=== PATIENT | female | born 1980 | race Caucasian/White ===

== ENCOUNTER 2019-12-19 08:26 | Outpatient (CLI) | payer BC, SELFPAY ==
--- NOTE | ~2019-12-19 | MM_ITS ---
EXAMINATION: MM screening olayinka BI w soraya HISTORY: Screening mammogram TECHNIQUE: Craniocaudal and mediolateral oblique 3-D tomosynthesis images were obtained and synthetic 2-D images were generated. CAD analysis was submitted and interpreted. COMPARISON: No prior mammogram is available for comparison at this institution. BREAST PARENCHYMAL COMPOSITION: FINDINGS: Bilateral benign axillary tail lymph nodes are noted. There is no evidence of suspicious ma ss, calcification, or architectural distortion to suggest malignancy in either breast. There has been no suspicious interval change. IMPRESSION: 1. No mammographic evidence of malignancy. 2. Recommend routine screening mammography in one year. BI-RADS Category 2: Benign finding(s). Reviewed, dictated and finalized at location A.
== END 2019-12-19 08:27 | disposition home or self-care (01) ==
PROVIDERS: PCP Family Medicine; Visit Provider Family Medicine
DX: Z12.31 Encounter for screening mammogram for malignant neoplasm of breast (principal)
CPT/HCPCS: 77063; 77067

== ENCOUNTER 2022-08-19 08:03 | Emergency (ER) | payer BC, SELFPAY ==
--- NOTE | 2022-08-19 08:06 | ED.URI ---
HPI - URI/Sore Throat General Chief Complaint: Upper Respiratory Infection Stated Complaint: Cough,Congestion Time Seen by Provider: 08/19/22 08:06 Source: patient Mode of arrival: ambulatory Limitations: no limitations History of Present Illness HPI Narrative: Ms Perdue is a 41-year-old female patient presenting to the clinic today with complaints of cough and congestion x 1 day. She reports she is having a lot of sinus congestion and coughing up yellow phlegm. She does have a history of chronic recurrent sinus infections. She denies any fever or chills. MD elicited complaint: sore throat and nasal congestion Related Data Allergies Allergy/AdvReac Type Severity Reaction Status Date / Time Penicillins Allergy Mild Rash Verified 08/19/22 08:15 adhesive tape Allergy Unknown RASH Verified 08/19/22 08:15 Review of Systems Review of Systems: Pertinent positives per HPI. Patient denies any fever, chills, rash, headache, visual changes, dizziness, shortness of breath, chest pain, palpitations, nausea, vomiting, diarrhea, constipation, abdominal pain, or any urinary issues. PMFSH Past Medical History Medical History Accidental bee sting BMI 35.0-35.9,adult BMI 36.0-36.9,adult BMI over 35 Chronic sinus complaints COVID-19 Family History Family History Grandparent Malignant neoplasm of prostate Family history of malignant neoplasm of testis Father Leukemia Mother Tachycardia Sibling Crohn's disease Uterine cancer Epilepsy Other Diabetes mellitus Hypertension Social History Social History Smoking status: Former smoker Tobacco type: cigarettes Second hand tobacco smoke exposure: Yes Alcohol intake: current Substance use: never Substance use type: does not use Additional occupation/education comments: [employer] Gender identity (if verbalized by the patient): Female Comments At the time of my signature, I reviewed and agree with the nursing past medical, surgical, social, and family history. There is no relevant family history pertinent to the patient complaint. Exam Narrative: General: Well-developed, well nourished, in no apparent distress Head: Normocephalic, atraumatic Eyes: Pupils equally round and reactive to light bilaterally, EOM intact, sclera and conjunctive clear, no discharge, lids normal Ears: TMs intact and clear, ear canals clear, no drainage, grossly hearing normal. Nose: Nares patent, clear nasal discharge, mild inflammation, maxillary sinus tenderness. Mouth: Oral pharynx without lesions or masses, good dentition, MMM. Neck: Supple, trachea midline, no enlargement of anterior or posterior cervical nodes, no thyroid masses or goiter palpable. Cardio: Regular rate and rhythm, s1 and s2 normal, no murmur appreciated. Resp: Clear to auscultation bilaterally, no rhonchi, rales, wheezing or rubs Course Course Emergency Course: Portions of this record may have been created with voice recognition software. Level of Care: Express Care Visit Vital Signs Vital signs: Vital signs reviewed MDM - URI/Sore Throat MDM Narrative Medical decision making narrative: At the time of visit patient is resting comfortably on the exam table. I suspect patient has an upper respiratory infection. Prescription for prednisone was sent to the pharmacy and supportive measures were discussed with the patient she voiced understanding of discharge instructions and agrees to treatment plan. Differential Diagnosis Differential diagnosis: Likely upper respiratory infection, otitis media, sinusitis, viral infection, bronchitis, influenza, pharyngitis and other (COVID) Discharge Plan Discharge Clinical Impression: Acute upper respiratory infection Patient Disposition: Home, Self-Care Condition: S
[2022-08-19 08:14] VITALS: BP 128/82; PULSE 112; RESP 18; TEMP 36.9; O2SAT 100
[2022-08-19 08:15] VITALS: BP 128/82; PULSE 112; RESP 18; TEMP 36.9; O2SAT 100
== END 2022-08-19 08:48 | disposition home or self-care (01) ==
PROVIDERS: Emergency Provider Nurse Practitioner Family; PCP Family Medicine
DX: J06.9 Acute upper respiratory infection, unspecified (principal); Z87.891 Personal history of nicotine dependence; Z20.822 Contact with and (suspected) exposure to COVID-19
CPT/HCPCS: 87426; 99213; C9803; G0463

== ENCOUNTER 2022-12-07 08:06 | Emergency (ER) | payer BC, SELFPAY ==
--- NOTE | 2022-12-07 08:11 | ED.URI ---
HPI - URI/Sore Throat General Chief Complaint: Upper Respiratory Infection Stated Complaint: SORE THROAT/HEAD PRESSURE Time Seen by Provider: 12/07/22 08:11 Source: patient and RN notes reviewed History of Present Illness HPI Narrative: Patient is a 42-year-old female who presents to urgent care with complaints of sinus pressure, drainage, facial pressure, bilateral ear pain. Patient states she has also had a lot of postnasal drainage. Patient states that it started on Tuesday. Patient states that she has been using sinus rinses an Afrin spray. Patient states that the steroid improve her symptoms last time she was here. Denies any fevers, nausea or vomiting. No other acute complaints. No acute distress noted. Patient aware of the plan of care. Some parts of this dictation were generated by voice recognition software and may contain typographical and/or grammatical inaccuracies. Related Data Allergies Allergy/AdvReac Type Severity Reaction Status Date / Time Penicillins Allergy Mild Rash Verified 12/07/22 08:18 adhesive tape Allergy Unknown RASH Verified 12/07/22 08:18 Review of Systems Review of Systems: CONSTITUTIONAL: Denies fever, chills, or sweats. EYES: Denies visual changes, redness, or discharge. ENT: Reports of sinus drainage, frontal sinus pressure, congestion and postnasal drainage CARDIOVASCULAR: Denies chest pain, palpitations, or edema. RESPIRATORY: Denies cough or dyspnea. GASTROINTESTINAL: Denies abdominal pain, nausea, vomiting, or diarrhea. GENITOURINARY: Denies dysuria or hematuria. SKIN: Denies rash or itching. MUSCULOSKELETAL: Denies back pain, joint pain, or myalgia. NEUROLOGIC: Denies headache, numbness, or weakness. All other systems reviewed are negative, except as documented in HPI. [facility] Past Medical History Medical History Accidental bee sting BMI 35.0-35.9,adult BMI 36.0-36.9,adult BMI over 35 Chronic sinus complaints COVID-19 Family History Family History Grandparent Malignant neoplasm of prostate Family history of malignant neoplasm of testis Father Leukemia Mother Tachycardia Sibling Crohn's disease Uterine cancer Epilepsy Other Diabetes mellitus Hypertension Social History Social History Smoking status: Former smoker Tobacco type: cigarettes Second hand tobacco smoke exposure: Yes Alcohol intake: current Substance use: never Substance use type: does not use Living arrangements: with family Occupation/Education: occupation Additional occupation/education comments: [employer] Gender identity (if verbalized by the patient): Female Comments At the time of my signature, I reviewed and agree with the nursing past medical, surgical, social, and family history. There is no relevant family history pertinent to the patient complaint. Exam Narrative: GENERAL: This is a well-nourished, well-developed patient, in no apparent distress. HEAD: normocephalic, atraumatic. Reported any sinus tenderness EYES: PERRL. Sclera clear/white. Vision is grossly intact. EARS: External ears normal, auditory canals clear and without drainage, TMs normal without perforation. Hearing grossly intact. NOSE: External nose normal with no obvious nasal discharge, nares without redness, the clear rhinorrhea. THROAT: Mucous membranes moist, edematous uvula with moderate postnasal drainage NECK: Neck supple, non-tender without lymphadenopathy RESPIRATORY: Clear to auscultation. Breath sounds equal bilaterally. No wheezes, rales, or rhonchi. SKIN: warm, intact with no suspicious lesions or rash, good texture and turgor. NEURO: awake, alert, and oriented to person, place and time. There were no obvious focal neurologic abnormalities. EXTREMITIES: No clubbing, cyanosis, or edema. Course
[2022-12-07 08:17] VITALS: BP 132/88; PULSE 97; RESP 16; TEMP 37; O2SAT 100
== END 2022-12-07 08:26 | disposition home or self-care (01) ==
PROVIDERS: Emergency Provider Nurse Practitioner Family; PCP Family Medicine
DX: J32.9 Chronic sinusitis, unspecified (principal); Z87.891 Personal history of nicotine dependence; Z86.16 Personal history of COVID-19
CPT/HCPCS: 99213; G0463

== ENCOUNTER 2023-04-08 08:39 | Emergency (ER) | payer BC, SELFPAY ==
--- NOTE | 2023-04-08 08:48 | ED.URI ---
HPI - URI/Sore Throat General Stated Complaint: congestion Time Seen by Provider: 04/08/23 08:47 Source: patient Mode of arrival: ambulatory Limitations: no limitations History of Present Illness HPI Narrative: Shirley is a 42-year-old female patient presenting to clinic today with complaints of sinus pressure, yellow nasal drainage, low-grade fever, and headache times 3-4 days. She reports she has has a history of 3 sinus surgeries for chronic sinusitis and is still having issues with chronic sinusitis. Did a at home COVID test this morning and it was negative. MD elicited complaint: fever, cough, rhinorrhea, nasal congestion and sinus pain Related Data Allergies Allergy/AdvReac Type Severity Reaction Status Date / Time Penicillins Allergy Mild Rash Verified 01/06/23 07:56 adhesive tape Allergy Unknown RASH Verified 01/06/23 07:56 Review of Systems Review of Systems: Pertinent positives per HPI. Patient denies any rash, visual changes, dizziness, shortness of breath, chest pain, palpitations, nausea, vomiting, diarrhea, constipation, abdominal pain, or any urinary issues. [facility] Past Medical History Medical History Accidental bee sting BMI 35.0-35.9,adult BMI 36.0-36.9,adult BMI 38.0-38.9,adult BMI over 35 Chronic sinus complaints COVID-19 H/O fracture of leg Leg fracture Family History Family History Grandparent Malignant neoplasm of prostate Family history of malignant neoplasm of testis Father Leukemia Mother Tachycardia Sibling Crohn's disease Uterine cancer Epilepsy Other Diabetes mellitus Hypertension Social History Social History Smoking status: Former smoker Tobacco type: cigarettes Second hand tobacco smoke exposure: Yes Alcohol intake: current Substance use: never Substance use type: does not use Lack of Transportation: No Lack of Food: Never True Current Housing: I Have Housing Concerned About Future Housing: No Difficulty Paying Gas/Electric Bills: No Difficulty Paying for Meds: No Currently Unemployed: No Education: Master's Degree or Higher Difficulty w/ Childcare or Family Care: No Living arrangements: with family Occupation/Education: occupation Additional occupation/education comments: market research Gender identity (if verbalized by the patient): Female Comments At the time of my signature, I reviewed and agree with the nursing past medical, surgical, social, and family history. There is no relevant family history pertinent to the patient complaint. Exam Narrative: General: Well-developed, well nourished, in no apparent distress Head: Normocephalic, atraumatic Eyes: Pupils equally round and reactive to light bilaterally, EOM intact, sclera and conjunctive clear, no discharge, lids normal Ears: TMs intact and clear, ear canals clear, no drainage, grossly hearing normal. Nose: Nares patent, yellow nasal discharge, moderate inflammation with white straei bilaterally, maxillary and frontal sinus tenderness. Mouth: Oral pharynx without lesions or masses, good dentition, MMM. PND Neck: Supple, trachea midline, no enlargement of anterior or posterior cervical nodes, no thyroid masses or goiter palpable. Cardio: Regular rate and rhythm, s1 and s2 normal, no murmur appreciated. Resp: Clear to auscultation bilaterally, no rhonchi, rales, wheezing or rubs Course Course Emergency Course: Portions of this record may have been created with voice recognition software. Level of Care: Express Care Visit Vital Signs Vital signs: Vital signs reviewed MDM - URI/Sore Throat MDM Narrative Medical decision making narrative: At the time of visit patient is resting comfortably on the exam table. I suspect patient has acute flare of chronic sinusitis. Will place
[2023-04-08 08:55] VITALS: BP 126/68; PULSE 100; RESP 18; TEMP 36.8; O2SAT 100
== END 2023-04-08 09:12 | disposition home or self-care (01) ==
PROVIDERS: Emergency Provider Nurse Practitioner Family; PCP Family Medicine
DX: J01.90 Acute sinusitis, unspecified (principal); B96.89 Other specified bacterial agents as the cause of diseases classified elsewhere; Z87.891 Personal history of nicotine dependence
CPT/HCPCS: 99213; G0463

== ENCOUNTER 2023-07-25 08:04 | Emergency (ER) | payer BC, SELFPAY ==
[2023-07-25 08:32] VITALS: BP 129/71; PULSE 97; RESP 18; TEMP 36.3; O2SAT 99
[2023-07-25 08:45] LABS: Glucose Point of Care 85 mg/dl (65-105)
[2023-07-25 08:58] VITALS: BP 115/67; PULSE 85
[2023-07-25 09:00] VITALS: BP 120/78; PULSE 93
[2023-07-25 09:02] VITALS: BP 115/78; PULSE 125
--- NOTE | 2023-07-25 09:11 | ED.DIZZY ---
HPI - Dizziness General Chief Complaint: Dizziness Stated Complaint: light headed Time Seen by Provider: 07/25/23 08:37 Source: patient and RN notes reviewed Mode of arrival: ambulatory Limitations: no limitations History of Present Illness HPI Narrative: Patient presents today complaining of a 3 day history of increased thirst, dizziness and lightheadedness that increases with standing and head movement. She also states that she has had 5 alerts on her smart watch for heart rates for greater than 100bpm yesterday. Denies URI symptoms such as fever, sore throat, cough, ear pain. Denies chest pain, shortness of breath, abdominal pain. States symptoms are similar when she was dehydrated in the past and needed IV fluids for rehydration. Related Data Allergies Allergy/AdvReac Type Severity Reaction Status Date / Time Penicillins Allergy Mild Rash Verified 07/25/23 08:37 adhesive tape Allergy Unknown RASH Verified 07/25/23 08:37 Review of Systems Review of Systems: CONSTITUTIONAL: Denies body aches, fever, chills, or sweats. EYES: Denies visual changes, redness, or discharge. ENT: Denies rhinorrhea, congestion, sore throat, or otalgia. CARDIOVASCULAR: Denies chest pain, palpitations, or edema. + increased heart rate RESPIRATORY: Denies cough or dyspnea. GASTROINTESTINAL: Denies abdominal pain, nausea, vomiting, or diarrhea. + increased thirst GENITOURINARY: Denies dysuria or hematuria. SKIN: Denies rash, itching, or wounds. MUSCULOSKELETAL: Denies back pain, joint pain, or myalgia. NEUROLOGIC: Denies headache, numbness, tingling, or weakness.+ dizziness, lightheadedness PSYCH: Denies depression or anxiety. [facility] Past Medical History Medical History Accidental bee sting 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 BMI 32.0-32.9,adult Chronic sinus complaints COVID-19 H/O fracture of leg Leg fracture Family History Family History Grandparent Malignant neoplasm of prostate Family history of malignant neoplasm of testis Father Leukemia Mother Tachycardia Sibling Crohn's disease Uterine cancer Epilepsy Other Diabetes mellitus Hypertension Social History Social History Smoking status: Former smoker Tobacco type: cigarettes Second hand tobacco smoke exposure: Yes Alcohol intake: former Substance use: never Substance use type: does not use Lack of Transportation: No Lack of Food: Never True Current Housing: I Have Housing Concerned About Future Housing: No Difficulty Paying Gas/Electric Bills: No Difficulty Paying for Meds: No Currently Unemployed: No Education: Master's Degree or Higher Difficulty w/ Childcare or Family Care: No Living arrangements: with family Occupation/Education: occupation Additional occupation/education comments: [employer] Gender identity (if verbalized by the patient): Female Comments At time of signature, I have reviewed and agree with nursing past medical, surgical, social and family history unless otherwise noted. Please see nursing chart for further information. There is no relevant family history pertinent to the presenting complaint Exam Narrative: GENERAL: Well-appearing, well-nourished, and in no acute distress. HEAD: Normocephalic, atraumatic. EYES: EOMI. PERRL. No redness or drainage. Conjunctivae normal. ENT: Mucous membranes pink and moist. Nares clear. No rhinorrhea. NECK: Normal AROM. Supple. No lymphadenopathy. CHEST: No respiratory distress. Clear to auscultation. HEART: Regular rate and rhythm. No murmur appreciated. Normal peripheral pulses. ABDOMEN: Soft, nontender, nondistended, normal active bowel sounds. MUSCULOSKELETAL: No bony tenderness. EXTREMITIES: Normal range of motion. No edema. SKIN: Warm, dry, no rash
== END 2023-07-25 09:14 | disposition short-term general hospital (02) ==
PROVIDERS: Emergency Provider Nurse Practitioner; PCP Family Medicine
DX: R42 Dizziness and giddiness (principal); R63.1 Polydipsia; Z87.891 Personal history of nicotine dependence; Z86.16 Personal history of COVID-19
CPT/HCPCS: 82948; 99212; G0463

== ENCOUNTER 2024-06-20 16:23 | Outpatient (CLI) | payer BC, SELFPAY ==
--- NOTE | ~2024-06-20 | XR_ITS ---
EXAMINATION: XR elbow RT 2V DATE: 06/20/2024 16:33 INDICATION: Other enthesopathies presenting with 4 weeks of right lateral epicondylar pain TECHNIQUE: Anteroposterior, two oblique and lateral views of the right elbow were obtained. COMPARISON: None. FINDINGS: Alignment is normal. No fracture or joint effusion. Joint spaces are normal. No evident osteophytes, enthesophytes or erosions. Soft tissues are unremarkable. IMPRESSION: 1. Negative right elbow radiographs. Reviewed, dictated and finalized at location B. [facility]
== END 2024-06-20 16:24 | disposition home or self-care (01) ==
LOC: MICIMG 16:24
PROVIDERS: PCP Family Medicine; Visit Provider Nurse Practitioner Adult Health
DX: M77.8 Other enthesopathies, not elsewhere classified (principal)
CPT/HCPCS: 73070

== ENCOUNTER 2024-09-12 09:11 | Emergency (ER) | payer BC, SELFPAY ==
--- NOTE | ~2024-09-12 | XR_ITS ---
EXAMINATION: XR chest 2V DATE: 09/12/2024 10:10 INDICATION: Cough. Lungs bates height. TECHNIQUE: PA and lateral views of the chest were obtained. COMPARISON: Chest radiograph dated 08/24/2016 FINDINGS: There are airspace opacities at the posterior left lung base. No pulmonary edema, pleural effusion or pneumothorax. The cardiomediastinal silhouette is normal. Cholecystectomy clips in right upper quadr ant. IMPRESSION: 1. Posterior left basilar opacities which could represent atelectasis and/or pneumonia. Reviewed, dictated and finalized at location A. ARIAL CONSULTANT IMPRESSION: 1. Posterior left basilar opacities which could represent atelectasis and/or pn eumonia.
[2024-09-12 09:47] VITALS: BP 116/71; PULSE 117; RESP 16; TEMP 38.3; O2SAT 95
[2024-09-12 10:12] LABS: EDCOVIDSCREEN Negative (Negative); EDINFLUASCREEN Negative (Negative); EDINFLUBSCREEN Negative (Negative)
--- NOTE | 2024-09-12 10:12 | ED_ITS ---
HPI - URI/Sore Throat General Chief Complaint: Upper Respiratory Infection Stated Complaint: FEVER/LUNG PAIN Time Seen by Provider: 09/12/24 09:15 Source: patient Mode of arrival: ambulatory Limitations: no limitations History of Present Illness HPI Narrative: Patient is a 43-year-old female who presents with fever, fatigue, sore throat, shortness of breath on exertion, ear pain, nonproductive cough, headache, chest congestion for 3 days. Denies any nausea, vomiting, diarrhea. No known exposures. Related Data Allergies Allergy/AdvReac Type Severity Reaction Status Date / Time Penicillins Allergy Mild Rash Verified 09/12/24 09:54 adhesive tape Allergy Unknown RASH Verified 09/12/24 09:54 Review of Systems Review of Systems: All systems reviewed & are unremarkable except as noted in HPI and below Constitutional: Constitutional: Denies body ache(s), Denies chills, Reports fatigue, Reports fever(s), Reports headache(s), Denies malaise and Denies weakness Eyes: Eyes: Denies blurry vision, Denies itchy eyes and Denies loss of vision ENT: Denies otalgia, Reports nasal congestion, Denies sinus pain and Reports sore throat Cardiovascular: Cardiovascular: Denies chest pain, Denies irregular heart rhythm and Denies dyspnea Respiratory: Respiratory: Reports chest congestion, Reports cough, Denies dyspnea and Reports dyspnea on exertion Gastrointestinal: Gastrointestinal: Denies abdominal pain, Denies diarrhea, Denies nausea and Denies vomiting Musculoskeletal: Musculoskeletal: Denies back pain, Denies myalgias and Denies arthralgias Integumentary/Breasts: Skin/Breast: Denies pruritus and Denies rash Neurologic: Reports headache(s), Denies loss of vision and Denies weakness Psychiatric: Psychiatric: Reports no additional psychiatric complaints Endocrine: Endocrine: Denies fatigue Allergic/Immunologic: Allergic/Immunologic: Denies itchy eyes PMFSH Past Medical History Medical History Tendonitis of elbow, right Acute sinusitis BMI 32.0-32.9,adult 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 Leg fracture Pharyngitis H/O fracture of leg Cough COVID-19 Screening for thyroid disorder Screening for diabetes mellitus Chronic sinus complaints Accidental bee sting Family History Family History Grandparent Malignant neoplasm of prostate Family history of malignant neoplasm of testis Father Leukemia Mother Tachycardia Sibling Crohn's disease Uterine cancer Epilepsy Other Diabetes mellitus Hypertension Social History Social History Smoking status: Former smoker Tobacco type: cigarettes Second hand tobacco smoke exposure: Yes Alcohol intake: former Substance use: never Substance use type: does not use Do You Feel Safe in your Home?: Yes Lack of Transportation: No Lack of Food: Never True Current Housing: I Have Housing Concerned About Future Housing: No Difficulty Paying Gas/Electric Bills: No Difficulty Paying for Meds: No Currently Unemployed: No Education: Master's Degree or Higher Difficulty w/ Childcare or Family Care: No Living arrangements: with family Occupation/Education: occupation 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 There is no relevant family history pertinent to the presenting complaint. Exam Const: General: cooperative, healthy appearing, comfortable, no acute distress and well nourished Nutritional Appearance: well nourished Orienta tion/consciousness: patient oriented x3 Limitations: no limitations HENMT: Head: normal to inspection, normocephalic and atraumatic Ears: hearing grossly normal bilaterally, external ears normal, TM's normal bilaterally, EAC's normal and no periauricular adenopathy Face/Nose/Sinus: Normal external nose present, Abnormal mucous membranes and turbinates present erythematous bilateral and diffuse, normal facial exam, sinuses nontender and face symmetric Face and sinus: normal facial exam, sinuses nontender and face symmetric Mouth: Yes Normal oral and palatal mucosa present, Yes lip normal, Yes tongue normal, Yes Normal salivary glands and ducts present, Yes oropharynx normal and Yes moist mucous membranes Teeth and gingiva: dentition normal Throat: posterior oropharynx normal, tonsils normal and uvula midline Eyes: General: appearance normal, both eyes and all related structures Alignment and Position: alignment normal and position normal Periorbital: periorbital findings normal Eyelids: eyelids normal Pupils: Equal, round and reactive pupils present Neck: Neck: normal visual inspection, full ROM, no lymphadenopathy and supple Chest: Chest palpation & inspection: normal inspection of the chest and normal palpation of entire chest wall Resp: Effort & Inspection: normal respiratory effort and able to speak in complete sentences Auscultation: no crackles, no rales, no rhonchi, no wheezes and diminished lung sounds on the left in the lower lung bates Cardio: Rate: tachycardic Rhythm: regular rhythm Heart sounds: S1 normal heart sound present and S2 normal heart sound present GI: Inspection: normal to inspection Skin: General skin exam: normal color and no rashes or lesions noted Neuro: General: patient oriented x3 and moves all extremities Cranial nerves: Yes Equal, round and reactive pupils present Speech: normal speech Gait exam (Neuro): Normal gait present Extrem: General: normal to inspection, full ROM and no edema Psych: Appearance: grossly normal and well kempt Mental Status: mental status grossly normal Speech and movement: Normal speech and movement present Affect: normal affect Attitude: cooperative Thought process: Normal thought process present Course Course Emergency Course: Discharge instructions reviewed with patient, as well as provided in writing pe r nursing staff. The instructions also include specific and strict return/GO TO THE ER as well as f/u information. All questions have been answered, and the patient deny any further questions with discharge and discharge plan. Portions of this record may have been created with voice recognition software Level of Care: Express Care Visit Vital Signs Vital signs: Vital Signs Temperature 38.3 C H 09/12/24 09:47 Pulse Rate 117 H 09/12/24 09:47 Respiratory Rate 16 09/12/24 09:47 Blood Pressure 116/71 09/12/24 09:47 Pulse Oximetry 95 09/12/24 09:47 Temperature 38.3 C H 09/12/24 09:47 Pulse Rate 117 H 09/12/24 09:47 Respiratory Rate 16 09/12/24 09:47 Blood Pressure 116/71 09/12/24 09:47 Pulse Oximetry 95 09/12/24 09:47 Oxygen Delivery Room Air 09/12/24 09:48 Reviewed MDM - URI/Sore Throat MDM Narrative Medical decision making narrative: Discussed need alternate Tylenol ibuprofen to bring down fever. Discussed pushing fluids and resting. Pt well hydrated appearing, in no respiratory distress, hemodynamically stable. Recommend supportive care. The patient is stable at time of discharge the clinical impression was discussed and the patient was given the opportunity to ask questions, which were addressed as completely as possible given the information available at present. Anticipatory guidance and return to care precautions were discussed and the importance of primary care follow-up was stressed and encouraged. The patient voiced understanding of the plan, indications to return, and the need for follow-up. Differential diagnosis considered: Le virus, strep pharyngitis, allergic rhinitis, upper respiratory tract infection, sinusitis, rhinosinusitis, nasopharyngitis. viral pharyngitis, otitis media, otitis externa, otitis effusion, foreign body, cerumen impaction, viral syndrome, and influenza.? Exam findings show no acute concerns or changes; patient is non-toxic appearing and is in no distress.? Patient is appropriate for outpatient treatment and follow- up.? Medical Records Attestation: I reviewed the patient's medical records. Lab Data Attestation: I reviewed the patient's lab results. Labs: Lab Results 09/12/24 Range/Units 10:06 POC Influenza A Ag Negative (Negative) POC Influenza B Ag Negative (Negative) POC SARS CoV-2 Ag Negative (Negative) Imaging Data Radiologist's impression: EXAMINATION: XR chest 2V DATE: 09/12/2024 10:10 INDICATION: Cough. Lungs bates height. TECHNIQUE: PA and lateral views of the chest were obtained. COMPARISON: Chest radiograph dated 08/24/2016 FINDINGS: There are airspace opacities at the posterior left lung base. No pulmonary edema, pleural effusion or pneumothorax. The cardiomediastinal silhouette is normal. Cholecystectomy clips in right upper quadrant. IMPRESSION: 1. Posterior left basilar opacities which could represent atelectasis and/or pneumonia Discharge Plan Discharge Clinical Impression: Pneumonia Qualifiers: Pneumonia type: due to unspecified organism Patient Disposition: Home, Self-Care Condition: Stable Instructions: Pneumonia (ED) Additional Instructions: Take antibiotic as prescribed. Use Tessalon Perles as needed for cough. Use inhaler with spacer as needed. Other symptomatic treatments include: -Alternate Tylenol and Motrin per package directions for fever or pain: Tylenol 650-1000mg by mouth every 4-6 hours. Do not exceed 4000mg in 24 hours. Advil (Ibuprofen) 600 mg by mouth every 6 hours. Do not exceed 2400mg in 24 hours. 8 AM: Tylenol 11 AM: Ibuprofen 2 PM: Tylenol 5 PM: Ibuprofen 8 PM: Tylenol 11 PM: Ibuprofen 2 AM: Tylenol 5 AM: Ibuprofen -Antihistamine medication such as Benadryl at night and Zyrtec/Claritin/Modesta during the day can help improve symptoms. -Use Flonase twice a day for 5 days then daily to help reduce the inflammation and dry up your sinuses. -You can also use Sudafed or Mucinex. Be sure to drink plenty of water with these medications at least 8 ounces with every dose and it is important to drink 8 to 10 glasses of water per day. Water is a natural decongestant -Eat and drink things that are easy to swallow, like tea or soup, or popsicles. -Oral rinses such as: Salt water gargles and/or may use topical anesthetic (eg. Chloraseptic spray) or lozenges to relieve dryness or throat pain). -Frequent hand washing or hand cigarette roller is one of the best ways to prevent spread of infection. -Using a vaporizer or humidifier at night will also help thin secretions and help with coughing up phlegm. -Follow up with primary care provider in 3-5 days if condition is not improving - For new or worsening symptoms go directly to the nearest ER Patient Language: Icelandic Prescriptions: New doxycycline monohydrate 100 mg tablet 100 mg PO BID 7 Days Qty: 14 0RF benzonatate 100 mg capsule 100 mg PO BID PRN (Reason: cough) Qty: 14 0RF albuterol sulfate 90 mcg/actuation HFA aerosol inhaler 2 puff inhalation QID PRN (Reason: shortness of breath or wheezing) Qty: 6.7 0RF (DME) Aerochamber MV Spacer See Rx Instructions .Route Qty: 1 0RF Rx Instructions: As directed No Action cholecalciferol (vitamin D3) 125 mcg (5,000 unit) capsule 125 mcg PO DAILY Qty: 30 0RF meloxicam 7.5 mg tablet 7.5 mg PO DAILY Qty: 30 1RF Sunosi 150 mg tablet 150 mg PO DAILY Qty: 30 2RF albuterol sulfate 90 mcg/actuation HFA aerosol inhaler 1 inh inhalation Q4H PRN (Reason: shortness of breath or wheezing) Qty: 8.5 0RF Follow-up/Referrals: Gopal Villanueva MD [Primary Care Provider] - 3 Days Time of Disposition: 10:39
[2024-09-12 10:42] VITALS: BP 118/72; PULSE 106; RESP 18; TEMP 37.8; O2SAT 98
== END 2024-09-12 10:42 | disposition home or self-care (01) ==
PROVIDERS: Emergency Provider Nurse Practitioner Family; PCP Family Medicine
DX: J18.9 Pneumonia, unspecified organism (principal); Z20.822 Contact with and (suspected) exposure to COVID-19; Z87.891 Personal history of nicotine dependence
CPT/HCPCS: 71046; 87426; 87804; 99213; G0463

== ENCOUNTER 2024-10-04 14:19 | Outpatient (CLI) | payer BC, SELFPAY | END 2024-10-04 14:20 | disposition home or self-care (01) | PROVIDERS: PCP Family Medicine; Visit Provider Physician Assistant Medical | DX: R91.8 Other nonspecific abnormal finding of lung field (principal); J81.1 Chronic pulmonary edema; J18.9 Pneumonia, unspecified organism | CPT/HCPCS: 71046 ==

== ENCOUNTER 2024-10-05 13:56 | Outpatient (CLI) | payer BC, SELFPAY | END 2024-10-05 13:57 | disposition home or self-care (01) | LOC: MICIMG 13:57 | PROVIDERS: PCP Family Medicine; Visit Provider Nurse Practitioner Adult Health | DX: Z12.31 Encounter for screening mammogram for malignant neoplasm of breast (principal) | CPT/HCPCS: 77063; 77067 ==

== ENCOUNTER 2024-10-09 14:13 | Outpatient (CLI) | payer BC, SELFPAY | END 2024-10-09 14:14 | disposition home or self-care (01) | LOC: MICIMG 14:14 | PROVIDERS: PCP Family Medicine; Visit Provider Physician Assistant Medical | DX: R91.8 Other nonspecific abnormal finding of lung field (principal); R09.89 Other specified symptoms and signs involving the circulatory and respiratory systems; J18.9 Pneumonia, unspecified organism | CPT/HCPCS: 71260; Q9967 ==

== ENCOUNTER 2024-11-07 15:53 | Emergency (ER) | payer BC, SELFPAY ==
[2024-11-07] VITALS (18 sets, daily range): BP systolic 116–128; BP diastolic 71–81; PULSE 78–99; RESP 9–23; TEMP 36.7; O2SAT 96–100
--- NOTE | ~2024-11-07 | CT_ITS ---
EXAMINATION: CTA chest PE protocol DATE: 11/07/2024 20:16 CDT INDICATION: Bilateral pleuritic chest pain with shortness of breath and recent pneumonia TECHNIQUE: Computed tomographic angiography (CTA) of the chest was performed with 100 mL Omnipaque-35 0 intravenous contrast. The dose-length product was 561.97 mGy-cm. Maximum intensity projection 3D-re constructions of the aorta and other arteries were constructed by the technologist on a separate work station. COMPARISON: 10/09/2024 FINDINGS/OBSERVATIONS: PULMONARY ARTERIES: No filling defect is identified within the main or proximal pulmonary artery. The main pulmonary artery is not enlarged. THORACIC AORTA: No aneurysmal dilatation or dissection is present. The great vessels are intact LUNGS: The lungs are clear. MEDIASTINUM: No morphologically suspicious or pathologically enlarged lymph nodes are identified with in the mediastinum or bilateral axilla. BONES OF THE CHEST: No acute fracture. No significant degenerative disease. No lytic or blastic lesions. HEART: The heart is of normal size, without pericardial effusion. IMPRESSION: No pulmonary embolus. No thoracic aortic dissection. The lungs are clear. Reviewed, dictated and finalized at location A.
--- OUTSIDE RECORDS SUMMARY | 2024-11-07 16:41 | XMS_ITS | Clinical Summary ---
Author Organization [facility] Address [facility] [place] [address] Care Team Providers Care Commission Broker Name Role Phone Gopal Villanueva MD Primary Care Provider [phone] Allergies Active Allergy Reactions Criticality Noted Date Comments Penicillins Throat swelling,Anaphylaxis,Rash,Swelling High 12/08/2015 Medications albuterol sulfate HFA 108 (90 Base) MCG/ACT inhaler INHALE 1 PUFF INTO THE LUNGS EVERY 4 HOURS NEEDED FOR SHORTNESS OF BREATH OR WHEEZING 2 Active dextromethorpha n-guaiFENesin ER (MUCINEX DM) 30-600 MG TABLET SR 12 HR 12 hr tablet Take 1 tablet by mouth as needed. Active HYDROcodone-chaparrita taminophen (NORCO) 5-325 MG tabletIndicatio ns:Chronic Pain Take 1-2 tablets by mouth every 6 (six) hours as needed for Pain. Indications: Chronic Pain 30 tablet 2 Active Additional Information Patient not taking.Reported on 08/24/2022 D3-50 1.25 MG (70970 UT) capsule Take 50,000 Units by mouth once a week. 2 Active atomoxetine (STRATTERA) 25 MG capsule Take 3 capsules (75 mg total) by mouth daily. 3 Active Active Problems Problem Noted Date Diagnosed Date Aftercare following surgery 06/28/2022 Other closed fracture of dis george end of right fibula, initial encounter 06/14/2022 Social History Tobacco Use Types Packs/Day Years Used Date Smoking Tobacco: Former Smokeless Tobacco: Never Tobacco Cessation:Counseling Given: Not Answered Alcohol Use Standard Drinks/Week Comments Yes 0 (1 standard drink = 0.6 oz pur e alcohol) once a week Comments No Sex and Gender Information Value Date Recorded Sex Assigned at Not on file Legal Sex Female 5:14 PM CDT Gender Identity Not on file Sexual Orientation Not on file Last Filed Vital Signs Vital Sign Reading Time Taken Comments Blood Pressure 123/66 07/25/2023 11:45 AM BOBBIN TRUCKER Pulse 82 07/25/2023 11:45 AM BOBBIN TRUCKER Temperature 36.1 C (97 F) 07/25/2023 11:45 AM BOBBIN TRUCKER Respiratory Rate 12 07/25/2023 11:45 AM BOBBIN TRUCKER Oxygen Saturation 99% 07/25/2023 11:45 AM BOBBIN TRUCKER Inhaled Oxygen Concentration - - Weight 90.7 kg (200 lb) 07/25/2023 10:01 AM BOBBIN TRUCKER Height 160 cm (5' 3 ) 07/25/2023 10:01 AM BOBBIN TRUCKER Body Mass Index 35.43 07/25/2023 10:01 AM BOBBIN TRUCKER Plan of Treatment Health Maintenance Due Date Last Done Comments Cervical Cancer Screening Pa p Smear (Age 30 to 64) Every 3 Years 1978 Colorectal Cancer Screening Colonoscopy (10 Years) 1978 Annual Physical 1981 Hepatitis C 1996 DTaP, Tdap and Td Vaccines ( 1 - Tdap) 1997 Hepatitis B Vaccines (1 of 3 - 19+ 3-dose series) 1997 Cervical Cancer Screening Pa p with HPV Testing (Age 30 to 64) Every 5 Years 2008 Cervical Cancer Screening wi HPV 2008 Mammogram Screening 2018 COVID-19 Vaccine (2023-2 5 season) 2024 09/04/2021, 12/08/2020, 11/06/2020 HPV Vaccines Aged Out No longer eligi ble based on patient's age to complete this topic Meningococcal B Vaccine Aged Out No l onger eligible based on patient's age to complete this topic Meningococcal Vaccine Aged Out No azra mandi eligible based on patient's age to complete this topic Pneumococcal Vaccine: Pediatrics (0 to 5 Years) and At-Risk Patients (6 to 64 Years) Aged Out No longer eligible b ased on patient's age to complete this topic RSV Immunizations Under 20 Months Aged Out No longer eligible b ased on patient's age to complete this topic Medical Devices Implanted Type Area Reception Centre Manager Device Identifier Shelf Expiration Date Model / Serial / Lot Plate [id number] Titanium 4 Hole Polyaxial Lock Low Profile Variax Bone 16x1.3mm Fibula Lateral Nonsterile - [id number] Implanted:Qty: 1 on 06/14/2022 by Shaji Rocha MD at [facility] Plate Right: Ankle [employer]NA [id number] / / Screw Bone 3.5mm 14mm Variax Titanium T10 Full Thread Foot Ankle Self Tap Nonsterile Yellow Lock Plate System - [id number] Implanted:Qty: 2 on 06/14/2022 by Shaji Rocha MD at [facility] Screw Right: Ankle [employer] [id number] / / 3.5 X 16mm Locking Screw Implanted:Qty: 4 on 06/14/2022 by Shaji Rocha MD at [facility] Right: Ankle [employer] [id number] / / 3.5 X 14mm Locking Screw Implanted:Qty: 2 on 06/14/2022 by Shaji Rocha MD at [facility] Right: Ankle [employer] [id number] / / 3.5 X 12mm Locking Screw Implanted:Qty: 1 on 06/14/2022 by Shaji Rocha MD at [facility] Right: Ankle [employer] [id number] / / Explanted Type Area Reception Centre Manager Device Identifier Shelf Expiration Date Model / Serial / Lot Screw Bone 3.5mm 18mm Variax Titanium T10 Full Thread Foot Ankle Self Tap Nonsterile Yellow Lock Plate System - [id number] Explanted:Qty: 1 on 06/14/2022 by Shaji Rocha MD at [facility] Screw Right: Ankle [employer] [id number] / / 2.6 Drill Bit Explanted:Qty: 1 on 06/14/2022 by Shaji Rocha MD at [facility] Right: Ankle [employer] [id number] / / Insurance [facility] Care Teams Commission Broker Relationship Specialty Start Date End Date Gopal Villanueva MD [address] [address] PCP - General FAMILY PRACTICE 06/10/22
--- OUTSIDE RECORDS SUMMARY | 2024-11-07 16:41 | XMS_ITS | Clinical Summary ---
Author Organization [facility] Address [address] [place] [address] Care Team Providers Care Dog Bather Name Role Phone Gopal Villanueva MD Primary Care Provider [phone] Source Comments [facility],non-owned Affiliates and Associated Physician Practices is amultiple site organization consisting of ambulatory clinics and hospital sitesin [place], [place], [place] and [place]. This disclosure is being madepursuant to the Care Everywhere program and may not contain all information available regarding this patient. Last updated 18.[facility] Allergies Active Allergy Reactions Criticality Noted Date Comments Penicillins Anaphylaxis,Swelling,Rash High 6 Medications * Be aware that medications may not be up to date on this document. Alwaysverify current medications with the patient. Medication Sig Dispensed Refills Start Date End Date Status modafinil (PROVIGIL) 200 MG tablet 90 tablet 1 11/10/2016 Active ergocalciferol (DRISDOL) 52171 UNITS capsule Take 50,000 Units by mouth q7days. 12 capsule 1 06/08/2016 Active meloxicam (MOBIC) 15 MG tablet Take 15 mg by mouth DAILY. 30 tablet 1 06/07/2016 Active Active Problems Problem Noted Date Diagnosed Date Pain in joint 06/07/2016 Other disturbances of smell and taste 04/22/2016 Postnasal drip 04/22/2016 Other general symptoms and signs 04/22/2016 Other specified disorders of nose and nasal sinu ses 04/22/2016 Family History Medical History Relation Name Comments Eczema Father Cancer Maternal Grandmother Eczema Maternal Grandmother High Cholesterol Maternal Grandmother Hypertension Maternal Grandmother Arthritis - Rheumatoid Mother Cancer Paternal Grandmother Cancer Sister Eczema Sister Seizures Sister Relation Name Status Comments Father Maternal Grandmother Mother Paternal Grandmother Sister Social History Tobacco Use Types Packs/Day Years Used Date Smoking Tobacco: Former Cigarettes Q uit: 04/21/2009 Smokeless Tobacco: Never Alcohol Use Standard Drinks/Week Comments Yes 0 (1 standard drink = 0.6 oz pur e alcohol) Sex and Gender Information Value Date Recorded Sex Assigned at Not on file Gender Identity Not on file Sexual Orientation Not on file Last Filed Vital Signs Vital Sign Reading Time Taken Comments Blood Pressure 113/75 11/10/2016 1:42 PM CDT Pulse 78 11/10/2016 1:42 PM CDT Temperature 37.2 C (99 F) 08/17/2016 12:16 PM SR. SOCIAL MEDIA & MOBILE MANAGER Respiratory Rate 18 08/17/2016 12:16 PM SR. SOCIAL MEDIA & MOBILE MANAGER Oxygen Saturation - - Inhaled Oxygen Concentration - - Weight 80.3 kg (177 lb) 11/10/2016 1:42 PM CDT Height 160 cm (5' 3 ) 11/10/2016 1:42 PM CDT Body Mass Index 31.35 11/10/2016 1:42 PM CDT Plan of Treatment Health Maintenance Due Date Last Done Comments COLOGUARD (AGES 45-75) - COL ON CA SCREENING 1978 COLON MONITORING 1978 COLONOSCOPY - COLON CA SCREENING 1978 CT COLONOGRAPHY - COLON CA SCREENING 1978 Colorectal Cancer Screening 1978 FIT - COLON CA SCREENING 1978 FLEX SIG - COLON CA SCREENING 1978 LIPID TESTING 1978 MAMMOGRAM 1978 PAP SMEAR 1978 HIV SCREENING 1993 HEPATITIS C SCREENING 11/11/1996 DTAP/TDAP/TD VACCINES (1 - Tdap) 1997 HEPATITIS B VACCINE (1 of 3 - 19+ 3-dose series) 1997 COVID-19 VACCINE (2023-2 5 season) 2024 INFLUENZA VACCINE (#1) 2024 DEPRESSION SCREENING 08/08/2024 ZOSTER VACCINE (1 of 2) 2028 HIB VACCINE Aged Out No longer eligi ble based on patient's age to complete this topic HPV VACCINE Aged Out No longer eligi ble based on patient's age to complete this topic MENINGOCOCCAL (Group B) VACC INE SHARED DECISION-MAKING Aged Out No longer eligibl e based on patient's age to complete this topic MENINGOCOCCAL GROUPS A/C/Y/W VACCINE Aged Out No longer eligible b ased on patient's age to complete this topic PNEUMOCOCCAL VACCINE Aged Out No long er eligible based on patient's age to complete this topic Care Teams Dog Bather Relationship Specialty Start Date End Date Gopal Villanueva MD [address] [place] [address] PCP - General 09/07/11
--- OUTSIDE RECORDS SUMMARY | 2024-11-07 16:41 | XMS_ITS | Encounter Summary ---
Author Organization [facility] Address [address] [place] [address] Care Team Providers Care Medical Records Clerk Name Role Phone Gopal Villanueva MD Primary Care Provider [phone] Encounter Details Date Type Department Care Team (Late st Contact Info) Description 06/14/2022 [employer] Message Enc [facility] [address] [address] [place], [facility] [address] [facility] [place] [id number] Visit Follow Up Social History Tobacco Use Types Packs/Day Years Used Date Smoking Tobacco: Former Smokeless Tobacco: Never Alcohol Use Standard Drinks/Week Comments Yes 0 (1 standard drink = 0.6 oz pur e alcohol) once a week Comments No Sex and Gender Information Value Date Recorded Sex Assigned at Not on file Legal Sex Female 5:14 PM CDT Gender Identity Not on file Sexual Orientation Not on file COVID-19 Exposure Response Date Recorded In the last 10 days, have yo u been in contact with someone who was confirmed or suspected to have Coronavirus/COVID-19? No / Unsure 06/14/2022 10:56 AM LAMINATION TECHNICIAN documented as of this encounter Plan of Treatment Not on file documented as of this encounter Visit Diagnoses Not on filedocumented in this encounter Additional Health Concerns Infection Onset Date Last Indicated Resolved Time COVID-19 Rule Out 07/25/2023 07/25/2023 07/25/2023 10:32 AM LAMINATION TECHNICIAN documented as of this encounter Care Teams Medical Records Clerk Relationship Specialty Start Date End Date Gopal Villanueva MD [address] [place] [address] PCP - General FAMILY PRACTICE 06/10/22 documented as of this encounter
--- OUTSIDE RECORDS SUMMARY | 2024-11-07 16:41 | XMS_ITS | Clinical Summary ---
Author Organization [facility] Address [address] [place] [address] Phone Care Team Providers Care Bus Washer Name Role Phone Gopal Villanueva MD Primary Care Provider [phone] Allergies Active Allergy Reactions Criticality Noted Date Comments Penicillins Swelling High 12/08/2015 Medications meloxicam (MOBIC) 15 mg tablet Take 15 mg by mouth daily. Active clarithromycin (BIAXIN) 500 mg tablet Take 500 mg by mouth 2 times daily. Active ergocalciferol (VITAMIN D2) 50,000 unit capsule Take 50,000 Units by mouth every 7 days. Active modafinil (PROVIGIL) 200 mg Tablet Take 200 mg by mouth daily. Active scopolamine (TRANSDERM-SCOP) 1.5 mg (1 mg over 3 days) patch Apply 1.5 mg to skin as directed Q72H. Active dextromethorphan -guaiFENesin (MUCINEX DM) 30-600 mg Tablet Sustained Release 12HR Take 1 Tablet by mouth every 12 hours. Active azelastine (ASTELIN) 137 mcg/actuation nasal sprayIndications :Nonallergic rhinitis Administer 2 Sprays in each nostril 2 times daily. 30 mL 5 7 Active montelukast (SINGULAIR) 10 mg tabletIndication s:Nonallergic rhinitis Take 1 Tablet (10 mg) by mouth daily at bedtime. 30 Tablet 5 7 Active predniSONE (DELTASONE) 10 mg tabletIndication s:Chronic sinusitis, unspecified location Take 3 tabs for 2 days, 2 tabs for 2 days, 1 tab for 2 days then 0.5 tab for 2 days.. 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): S/p 6 months of INH in college Family History Medical History Relation Name Comments Healthy Brother Healthy Father Healthy Mother Inflammatory Bowel Disease Sister Other Sister Uterine Cancer Sister Relation Name Status Comments Brother Alive Father Alive Mother Alive Sister Alive Social History Tobacco Use Types Packs/Day Years Used Date Smoking Tobacco: Former Smokeless Tobacco: Never Alcohol Use Standard Drinks/Week Comments No 0 (1 standard drink = 0.6 oz pur e alcohol) Comments Unknown Sex and Gender Information Value Date Recorded Sex Assigned at Not on file Legal Sex Female 9:47 AM CDT Gender Identity Not on file Sexual Orientation Not on file Last Filed Vital Signs Vital Sign Reading Time Taken Comments Blood Pressure 112/68 09/09/2016 8:13 AM METAL FURNITURE GLAZIER Pulse 89 09/09/2016 8:13 AM METAL [employer]URN[employer] GLA[employer]IER Temperature 36.8 C (98.3 F) 12/08/2015 2:25 PM CDT Respiratory Rate - - Oxygen Saturation 99% 09/09/2016 8:13 AM METAL FURNITURE GLAZIER Inhaled Oxygen Concentration - - Weight 78.9 kg (174 lb) 09/09/2016 8:13 AM METAL FURNITURE GLAZIER Height 160 cm (5' 3 ) 09/09/2016 8:13 AM METAL FURNITURE GLAZIER Body Mass Index 30.82 09/09/2016 8:13 AM METAL FURNITURE GLAZIER Plan of Treatment Health Maintenance Due Date Last Done Comments DTAP/TDAP/TD VACCINES (1 - Tdap) 1997 HEPATITIS B VACCINES (1 of 3 - 19+ 3-dose series) 1997 PAP SMEAR 11/17/1999 CERVICAL CANCER SCREENING 2008 HPV/Cotest (30-65) 2008 PAP SMEAR 2008 BREAST CANCER SCREENING 2018 COLORECTAL SCREENING 11/17/2023 Colorectal Cancer Screening 11/17/2023 FIT-DNA Q 3 years 11/17/2023 FIT/FOBT Q 1 year 11/17/2023 Flex Sig/CT Colonography Q 5 years 11/17/2023 INFLUENZA VACCINE (#1) 2024 HPV VACCINES Aged Out No longer eligi ble based on patient's age to complete this topic Insurance [facility] BLUE ACCESS/TRUE BLUE PPO Care Teams Bus Washer Relationship Specialty Start Date End Date Gopal Villanueva MD [address] [place] [address] PCP - General Family Practice 11/21/15
--- NOTE | 2024-11-07 16:46 | ECG_ITS ---
Test Date: 2024-11-07 17:47:13 Measurements Intervals [place] Rate: 73 P: 62 MN: 162 QRS: 56 QRSD: 85 T: 38 QT: 357 QTc: 395 Interpretive Statements SINUS RHYTHM EARLY PRECORDIAL R/S TRANSITION BORDERLINE ECG No previous ECG available for comparison Electronically Signed On 11-09-2024 09:34:08 CDT by Vidal Salguero D.O.
[2024-11-07 17:08] LABS: Basophils Percent Auto 0.3 % (0.2-1.2); Eosinophils Absolute Auto 0.2 K/mm3 (0-0.3); Eosinophils Percent Auto 1.2 % (0-4.4); Hematocrit 43.3 % (37.0-47.0); Hemoglobin 14.4 g/dL (12.0-15.0); Immature Granulocyte Absolute 0.06 K/mm3 (0.00-0.031); Immature Granulocyte Percent A 0.4 % (0-0.5); Lymphocytes Absolute Auto 3.31 K/mm3 (0.9-3.2); Lymphocytes Percent Auto 23.1 % (18.3-44.2); Mean Corpuscular HGB Conc 33.3 g/dl (32-36); Mean Corpuscular Hemoglobin 28.9 pg (26-34); Mean Corpuscular Volume 86.9 fl (80-100); Mean Platelet Volume 9.8 fl (7.4-10.4); Monocytes Percent Auto 7.3 % (2.6-8.5); Neutrophils Absolute Auto 9.7 K/mm3 (1.3-6.7); Neutrophils Percent Auto 67.7 % (45.5-73.1); Platelet Count Result 321 k/mm3 (150-375); Red Blood Count 4.98 M/mm3 (4.2-5.4); Red Cell Distribution Width 13.3 % (11.5-14.5); White Blood Count 14.3 K/mm3 (4.5-10.0)
[2024-11-07 17:19] LABS: Alanine Aminotransferase 15 U/L (6-35); Albumin Level 4.4 g/dL (3.5-5.1); Alkaline Phosphatase 58 U/L (38-126); Anion Gap 11 mmol/L (4-12); Aspartate Amino Transferase 17 U/L (14-36); Bilirubin,Total 1.1 mg/dL (0.2-1.3); Blood Urea Nitrogen 19 mg/dL (7-17); Calcium 9.1 mg/dL (8.4-10.2); Carbon Dioxide 24 mmol/L (22-30); Chloride 102 mmol/L (98-107); Estimated CRCL calculation 89 ml/min; Estimated Glomerular Filt Rate > 60; Glucose 93 mg/dL (65-110); Sodium 137 mmol/L (137-145)
[2024-11-07 17:20] LABS: INR 0.9; Partial Thromboplastin Time 29.9 Seconds (22.3-36.8); Prothrombin Time 12.4 Seconds (11.1-14.7)
--- NOTE | 2024-11-07 17:25 | ED.SOB ---
HPI - SOB/Dyspnea General Chief Complaint: Shortness of Breath/Dyspnea <FLOR Ramey Last Filed: 11/08/24 09:08> Stated Complaint: I've had pneumonia for 2 months <FLOR Ramey Last Filed: 11/08/24 09:08> Time Seen by Provider: 11/07/24 16:45 <FLOR Ramey Last Filed: 11/08/24 09:08> Source: patient and old records reviewed <FLOR Ramey Last Filed: 11/08/24 09:08> Mode of arrival: ambulatory <FLOR Ramey Filed: 11/08/24 09:08> Limitations: no limitations <FLOR Ramey Last Filed: 11/08/24 09:08> History of Present Illness HPI Narrative: Patient is a 43-year-old female who presents the ED with report of bilateral rib pain. Patient reports she has been dealing with pneumonia for the past 2 months. Has been on several courses of antibiotics. States she has blood work drawn last week that still showed leukocytosis. States her primary care doctor called her today and recommended that she continue to take antibiotics for another week. Today, she has been having increased pain in his sonam rib regions, worse with deep breathing, movement. Reports having dull pain at rest. Reports SOB over the past few weeks, denies SOB worse than usual today. Denies recent fevers. Denies pain or swelling in legs. No history of blood clots. <FLOR Ramey Last Filed: 11/08/24 09:08> Related Data Allergies/Adverse Reactions: Allergies Allergy/AdvReac Type Severity Reaction Status Date / Time Penicillins Allergy Mild Rash Verified 11/01/24 07:34 adhesive tape Allergy Unknown RASH Verified 11/01/24 07:34 <FLOR Ramey Last Filed: 11/08/24 09:08> Review of Systems Review of Systems: All systems reviewed & are unremarkable except as noted in HPI. 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 Leg fracture Pharyngitis H/O fracture of leg Cough COVID-19 Screening for thyroid disorder Screening for diabetes mellitus Chronic sinus complaints Accidental bee sting <Kylah Laguerre PA-C - Last Filed: 11/08/24 09:08> Family History Family History: Family History Grandparent Malignant neoplasm of prostate Family history of malignant neoplasm of testis Father Leukemia Mother Tachycardia Sibling Crohn's disease Uterine cancer Epilepsy Other Diabetes mellitus Hypertension <Kylah Laguerre PA-C - Last Filed: 11/08/24 09:08> Social History Social History: Social History Smoking status: Former smoker Tobacco type: cigarettes Second hand tobacco smoke exposure: Yes Alcohol intake: former Substance use: never Substance use type: does not use Do You Feel Safe in your Home?: Yes Lack of Transportation: No Lack of Food: Never True Current Housing: I Have Housing Concerned About Future Housing: No Difficulty Paying Gas/Electric Bills: No Difficulty Paying for Meds: No Currently Unemployed: No Education: Master's Degree or Higher Difficulty w/ Childcare or Family Care: No Living arrangements: with family Occupation/Education: occupation Additional occupation/education comments: market research Gender identity (if verbalized by the patient): Female <Kylah Laguerre PA-C - Last Filed: 11/08/24 09:08> Exam Narrative: GENERAL: Well appearing, obese with BMI of 36.5, non-toxic, in no acute distress. HEAD: Normocephalic, atraumatic. RESPIRATORY: Airway patent, respirations nonlabored. Clear to auscultation bilaterally, no rales, rhonchi, wheezing. No significant focal rhonchi. Discomfort reported with deep inspiration. CARDIOVASCULAR: Regular rate and rhythm without murmurs, rubs, or gallops. Peripheral pulses intact. MUSCULOSKELETAL: Moves all extremities. No gross deformities. TTP along sonam lateral rib cage regions. No palpable bony deformities or step offs. No calf tenderness or peripheral edema. SKIN: Warm, dry, normal color. NEURO: A&O X3. Speech clear. PSYCHIATRIC: Appropriate mood and affect. Normal interaction. <FLOR Ramey Last Filed: 11/08/24 09:08> Course Course Emergency Course: Patient updated on results. Discharged in stable condition <FLOR Davidson Last Filed: 11/07/24 20:45> Vital Signs Vital signs: Vital Signs Temperature 98.1 F 11/07/24 16:00 Pulse Rate 87 11/07/24 16:00 Respiratory Rate 20 11/07/24 16:00 Blood Pressure 119/72 11/07/24 16:00 Pulse Oximetry 99 11/07/24 16:00 Oxygen Delivery Room Air 11/07/24 16:00 Temperature 98.1 F 11/07/24 16:00 Pulse Rate 92 11/07/24 19:45 Respiratory Rate 23 H 11/07/24 19:45 Blood Pressure 116/71 11/07/24 18:16 Pulse Oximetry 98 11/07/24 19:45 Oxygen Delivery Room Air 11/07/24 17:30 <FLOR Ramey Last Filed: 11/08/24 09:08> Vital Signs Temperature 98.1 F 11/07/24 16:00 Pulse Rate 87 11/07/24 16:00 Respiratory Rate 20 11/07/24 16:00 Blood Pressure 119/72 11/07/24 16:00 Pulse Oximetry 99 11/07/24 16:00 Oxygen Delivery Room Air 11/07/24 16:00 Temperature 98.1 F 11/07/24 16:00 Pulse Rate 92 11/07/24 19:45 Respiratory Rate 23 H 11/07/24 19:45 Blood Pressure 116/71 11/07/24 18:16 Pulse Oximetry 98 11/07/24 19:45 Oxygen Delivery Room Air 11/07/24 17:30 <Corazon Salas PA-C - Last Filed: 11/07/24 20:45> MDM - SOB/Dyspnea MDM Narrative Medical decision making narrative: Patient presented to ED with bilateral pleuritic/rib pain, shortness of breath, recent pneumonia over the past 2 months. Vital signs are stable upon arrival. Patient oxygen stable on room air. She is afebrile here. EKG without ischemic changes. Troponin undetectable. Cbc with blood cell count of 14.3. Patient has been on a course of steroids recently. Denies recent fevers. CMP is unremarkable. Patient with reproducible pain along bilateral chest alegria. Seems most consistent with pleurisy given recent respiratory illness. Given presence of shortness breath, CTA of chest was obtained to rule out PE. Care signed out to Corazon Salas PA-C pending CTA imaging. Patient otherwise safe for discharge home if imaging is negative. <Kylah Laguerre PA-C - Last Filed: 11/08/24 09:08> Medical Records Attestation: I reviewed the patient's medical records. <Kylah Laguerre PA-C - Last Filed: 11/08/24 09:08> Lab Data Attestation: I reviewed the patient's lab results. <Kylah Laguerre PA-C - Last Filed: 11/08/24 09:08> Result diagrams: 11/07/24 17:03 11/07/24 17:03 <Kylah Laguerre PA-C - Last Filed: 11/08/24 09:08> Labs: Lab Results 11/07/24 11/07/24 Range/Units 17:03 18:49 WBC 14.3 H (4.5-10.0) K/mm3 RBC 4.98 (4.2-5.4) M/mm3 Hgb 14.4 (12.0-15.0) g/dL Hct 43.3 (37.0-47.0) % MCV 86.9 (80-100) fl MCH 28.9 (26-34) pg MCHC 33.3 (32-36) g/dl RDW 13.3 (11.5-14.5) % Plt Count 321 (150-375) k/mm3 MPV 9.8 (7.4-10.4) fl Immature Gran % (Auto) 0.4 (0-0.5) % Neut % (Auto) 67.7 (45.5-73.1) % Lymph % (Auto) 23.1 (18.3-44.2) % Tyler % (Auto) 7.3 (2.6-8.5) % Eos % (Auto) 1.2 (0-4.4) % Baso % (Auto) 0.3 (0.2-1.2) % Lymph # (Auto) 3.31 H (0.9-3.2) K/mm3 Tyler # (Auto) 1.0 H (0.1-0.6) K/mm3 Eos # (Auto) 0.2 (0-0.3) K/mm3 Baso # (Auto) 0.0 (0.0-0.1) K/mm3 Abs Immat Gran (auto) 0.06 H (0.00-0.031) K/mm3 Absolute Neuts (auto) 9.7 H (1.3-6.7) K/mm3 Absolute Nucleated RBC 0.000 (0.0-0.012) K/mm3 Nucleated RBC % 0.0 (0.0-0.2) % PT 12.4 (11.1-14.7) Seconds INR 0.9 APTT 29.9 (22.3-36.8) Seconds Sodium 137 (137-145) mmol/L Potassium 4.0 (3.4-5.0) mmol/L Chloride 102 (98-107) mmol/L Carbon Dioxide 24 (22-30) mmol/L Anion Gap 11 (4-12) mmol/L BUN 19 H (7-17) mg/dL Creatinine 0.75 (0.7-1.0) mg/dL Estim Creat Clear Calc 89 ml/min Estimated GFR > 60 (59 - ) Glucose 93 (65-110) mg/dL Calcium 9.1 (8.4-10.2) mg/dL Total Bilirubin 1.1 (0.2-1.3) mg/dL AST 17 (14-36) U/L ALT 15 (6-35) U/L Alkaline Phosphatase 58 (38-126) U/L Troponin I < 0.012 (0.000-0.034) ng/mL Total Protein 8.0 (6.3-8.2) g/dL Albumin 4.4 (3.5-5.1) g/dL POC Urine HCG, Qual Negative (Negative) <Kylah Laguerre PA-C - Last Filed: 11/08/24 09:08> Lab Results 11/07/24 11/07/24 Range/Units 17:03 18:49 WBC 14.3 H (4.5-10.0) K/mm3 RBC 4.98 (4.2-5.4) M/mm3 Hgb 14.4 (12.0-15.0) g/dL Hct 43.3 (37.0-47.0) % MCV 86.9 (80-100) fl MCH 28.9 (26-34) pg MCHC 33.3 (32-36) g/dl RDW 13.3 (11.5-14.5) % Plt Count 321 (150-375) k/mm3 MPV 9.8 (7.4-10.4) fl Immature Gran % (Auto) 0.4 (0-0.5) % Neut % (Auto) 67.7 (45.5-73.1) % Lymph % (Auto) 23.1 (18.3-44.2) % Tyler % (Auto) 7.3 (2.6-8.5) % Eos % (Auto) 1.2 (0-4.4) % Baso % (Auto) 0.3 (0.2-1.2) % Lymph # (Auto) 3.31 H (0.9-3.2) K/mm3 Tyler # (Auto) 1.0 H (0.1-0.6) K/mm3 Eos # (Auto) 0.2 (0-0.3) K/mm3 Baso # (Auto) 0.0 (0.0-0.1) K/mm3 Abs Immat Gran (auto) 0.06 H (0.00-0.031) K/mm3 Absolute Neuts (auto) 9.7 H (1.3-6.7) K/mm3 Absolute Nucleated RBC 0.000 (0.0-0.012) K/mm3 Nucleated RBC % 0.0 (0.0-0.2) % PT 12.4 (11.1-14.7) Seconds INR 0.9 APTT 29.9 (22.3-36.8) Seconds Sodium 137 (137-145) mmol/L Potassium 4.0 (3.4-5.0) mmol/L Chloride 102 (98-107) mmol/L Carbon Dioxide 24 (22-30) mmol/L Anion Gap 11 (4-12) mmol/L BUN 19 H (7-17) mg/dL Creatinine 0.75 (0.7-1.0) mg/dL Estim Creat Clear Calc 89 ml/min Estimated GFR > 60 (59 - ) Glucose 93 (65-110) mg/dL Calcium 9.1 (8.4-10.2) mg/dL Total Bilirubin 1.1 (0.2-1.3) mg/dL AST 17 (14-36) U/L ALT 15 (6-35) U/L Alkaline Phosphatase 58 (38-126) U/L Troponin I < 0.012 (0.000-0.034) ng/mL Total Protein 8.0 (6.3-8.2) g/dL Albumin 4.4 (3.5-5.1) g/dL POC Urine HCG, Qual Negative (Negative) <FLOR Davidson Last Filed: 11/07/24 20:45> Imaging Data Attestation: I personally reviewed and interpreted this imaging study as follows: <Kylah Laguerre PA-C - Last Filed: 11/08/24 09:08> Radiologist's impression: ITS Impressions Chest CTA 11/07/24 20:16 IMPRESSION: No pulmonary embolus. No thoracic aortic dissection. The lungs are clear. <FLOR Davidson Last Filed: 11/07/24 20:45> ECG Data EKG #1: Attestation: I personally reviewed and interpreted this ECG as follows: <FLOR Ramey Last Filed: 11/08/24 09:08> ECG completion date: 11/07/24 <FLOR Ramey Last Filed: 11/08/24 09:08> ECG completion time: 17:47 <FLOR Ramey Last Filed: 11/08/24 09:08> EKG Interpretation: normal rate (73), sinus rhythm and no ST changes <FLOR Ramey Last Filed: 11/08/24 09:08> Critical Care Time Critical Care Time Critical Care Time: No <FLOR Davidson Last Filed: 11/07/24 20:45> Discharge Plan Discharge Clinical Impression: Chest wall pain, Pleurisy <FLOR Ramey Last Filed: 11/08/24 09:08> Patient Disposition: Home, Self-Care <FLOR Ramey Last Filed: 11/08/24 09:08> Condition: Stable <FLOR Ramey Last Filed: 11/08/24 09:08> Instructions: Antibiotic Form, Pleurisy (ED) <FLOR Ramey Last Filed: 11/08/24 09:08> Additional Instructions: Continue Tylenol and ibuprofen as needed for pain. Take muscle relaxers as needed and prescribed. Recommend taking these at night as they may cause sedation. Do not drive, operate heavy machinery, drink alcohol while on muscle relaxers as this may cause further sedation. Follow-up with your primary care doctor for further evaluation. Return to the ED if you experience worsening or severe pain, severe shortness of breath, unable to keep down food or drink, persistent fevers, or any other symptoms of concern. <FLOR Ramey Last Filed: 11/08/24 09:08> Patient Language: Montenegrin <FLOR Ramey Last Filed: 11/08/24 09:08> Prescriptions: New cyclobenzaprine 5 mg tablet 5 mg PO TID PRN (Reason: muscle spasm) Qty: 10 0RF No Action albuterol sulfate 90 mcg/actuation HFA aerosol inhaler 2 puff inhalation QID PRN (Reason: shortness of breath or wheezing) Qty: 6.7 0RF (DME) Aerochamber MV Spacer See Rx Instructions .Route Qty: 1 0RF Rx Instructions: As directed cholecalciferol (vitamin D3) 125 mcg (5,000 unit) capsule 125 mcg PO DAILY Qty: 30 0RF meloxicam 7.5 mg tablet 7.5 mg PO DAILY Qty: 30 1RF Sunosi 150 mg tablet 150 mg PO DAILY Qty: 30 2RF budesonide 1 mg/2 mL suspension for nebulization 1 mg inhalation QAM Qty: 60 0RF Airsupra 90-80 mcg/actuation HFA aerosol inhaler 2 inh inhalation 6XD PRN (Reason: shortness of breath) Qty: 32.1 3RF albuterol sulfate 90 mcg/actuation HFA aerosol inhaler 1 inh inhalation Q4H PRN (Reason: shortness of breath or wheezing) Qty: 8.5 0RF albuterol sulfate 2.5 mg /3 mL (0.083 %) solution for nebulization 2.5 mg inhalation Q4-6H PRN (Reason: shortness of breath or wheezing) Qty: 75 0RF levofloxacin 500 mg tablet 500 mg PO DAILY 7 Days Qty: 7 0RF <Kylah Laguerre PA-C - Last Filed: 11/08/24 09:08> Follow-up/Referrals: Gopal Villanueva MD [Primary Care Provider] - <Kylah Laguerre PA-C - Last Filed: 11/08/24 09:08>
[2024-11-07 17:31] LABS: Troponin I < 0.012 ng/mL (0.000-0.034)
[2024-11-07] MEDS: HYDROcodone/acetaminophen (*CRX) 5-325 MG TABLET 1 TAB PO (17:55)
[2024-11-07 18:50] LABS: BEDSIDEPREGUCG Negative (Negative)
== END 2024-11-07 21:08 | disposition home or self-care (01) ==
PROVIDERS: Emergency Provider Physician Assistant; PCP Family Medicine
DX: R07.89 Other chest pain (principal); R09.1 Pleurisy; F90.9 Attention-deficit hyperactivity disorder, unspecified type
CPT/HCPCS: 36415; 71275; 80053; 81025; 84484; 85025; 85610; 85730; 93005; 99284; A9270; Q9967

== ENCOUNTER 2024-12-10 14:34 | Outpatient (CLI) | payer BC, SELFPAY ==
--- OUTSIDE RECORDS SUMMARY | 2024-12-10 15:12 | XMS_ITS | Clinical Summary ---
Author Organization [facility] Address [facility] [place] [address] Care Team Providers Care Commodity Buyer Name Role Phone Gopal Villanueva MD Primary Care Provider [phone] Allergies Active Allergy Reactions Criticality Noted Date [...] not taking.Reported on 08/24/2022 D3-50 1.25 MG (67688 UT) capsule Take 50,000 Units by mouth [...] Comments Blood Pressure 123/66 07/25/2023 11:45 AM GRAIN SCOOPER Pulse 82 07/25/2023 11:45 AM GRAIN SCOOPER Temperature 36.1 C (97 F) 07/25/2023 11:45 AM GRAIN SCOOPER Respiratory Rate 12 07/25/2023 11:45 AM GRAIN SCOOPER Oxygen Saturation 99% 07/25/2023 11:45 AM GRAIN SCOOPER Inhaled Oxygen Concentration - - Weight 90.7 kg (200 lb) 07/25/2023 10:01 AM GRAIN SCOOPER Height 160 cm (5' 3 ) 07/25/2023 10:01 AM GRAIN SCOOPER Body Mass Index 35.43 07/25/2023 10:01 AM GRAIN SCOOPER Plan of Treatment Health Maintenance Due Date [...] 5 Years) and At-Risk Patients (6 to 49 Years) Aged Out No longer eligible b ased on patient's age to complete this topic RSV Immunizations Under 20 Months Aged Out No longer eligible b ased on patient's age to complete this topic Medical Devices Implanted Type Area Brand Ambassador Promotional Model Device Identifier Shelf Expiration Date Model / Serial / Lot Plate [id number] Titanium 4 Hole Polyaxial Lock Low Profile Variax Bone 16x1.3mm Fibula Lateral Nonsterile - [id number] Implanted:Qty: 1 on 06/14/2022 by Shaji Rocha MD at [facility] Plate Right: Ankle [employer] [id number] / / Screw Bone 3.5mm 14mm Variax Titanium T10 Full Thread Foot Ankle Self Tap Nonsterile Yellow Lock Plate System - [id number] Implanted:Qty: 2 on 06/14/2022 by Shaji Rocha MD at [facility] Screw Right: Ankle [employer] [id number] / / 3.5 X 16mm Locking Screw Implanted:Qty: 4 on 06/14/2022 by Shaji Rocha MD at [facility] Right: Ankle [employer] [id number] / / 3.5 X 14mm Locking Screw Implanted:Qty: 2 on 06/14/2022 by Shaji Rocha MD at [facility] Right: Ankle [employer] [id number] / / 3.5 X 12mm Locking Screw Implanted:Qty: 1 on 06/14/2022 by Shaji Rocha MD at [facility] Right: Ankle [employer] [id number] / / Explanted Type Area Brand Ambassador Promotional Model Device Identifier Shelf Expiration Date Model / Serial / Lot Screw Bone 3.5mm 18mm Variax Titanium T10 Full Thread Foot Ankle Self Tap Nonsterile Yellow Lock Plate System - [id number] Explanted:Qty: 1 on 06/14/2022 by Shaji Rocha MD at [facility] Screw Right: Ankle [employer] [id number] / / 2.6 Drill Bit Explanted:Qty: 1 on 06/14/2022 by Shaji Rocha MD at [facility] Right: Ankle [employer] [id number] / / Insurance [facility] Care Teams Commodity Buyer Relationship Specialty Start Date End Date Gopal Villanueva MD [address] [address] PCP - General FAMILY PRACTICE 06/10/22
--- OUTSIDE RECORDS SUMMARY | 2024-12-10 15:12 | XMS_ITS | Encounter Summary ---
Author Organization [facility] Address [address] [place] [address] Care Team Providers Care Engineering Technician Parking Name Role Phone Gopal Villanueva MD Primary Care Provider [phone] Encounter Details Date Type Department Care Team (Late st Contact Info) Description 06/14/2022 Whisper Message Enc [facility] [address] [address] Noa Stone, [facility] [address] [place] [address] Visit Follow Up Social History Tobacco Use [...] Coronavirus/COVID-19? No / Unsure 06/14/2022 10:56 AM CHIEF OPHTHALMIC TECHNICIAN documented as of this encounter Functional Status * Calculated C-SSRS Risk Score (Lifetime/Recent) Answer Date of Assessment Author Status No Risk Indicated 06/14/2022 2:06 PM CHIEF OPHTHALMIC TECHNICIAN Brittaney Muniz RN Active * Elbert Suicide Severity Rating Scale (Screener/Recent Self-Report) Question Answer Date of Assessment Author Status 1. Wish to be (Past 1 Month) No 06/14/2022 2:06 PM CHIEF OPHTHALMIC TECHNICIAN Shanique Muniz RN Active 2. Non-Specific Active Suicidal Thoughts (Past 1 Month) No 06/14/2022 2:06 PM CHIEF OPHTHALMIC TECHNICIAN Shanique Muniz RN Active 6. Suicidal Behavior (Lifetime) No 06/14/2022 2:06 PM CHIEF OPHTHALMIC TECHNICIAN Shanique Muniz RN Active documented as of this encounter Plan of Treatment Not on file documented as of this encounter Visit Diagnoses Not on filedocumented in this encounter Additional Health Concerns Infection Onset Date Last Indicated Resolved Time COVID-19 Rule Out 07/25/2023 07/25/2023 07/25/2023 10:32 AM CHIEF OPHTHALMIC TECHNICIAN documented as of this encounter Care Teams Engineering Technician Parking Relationship Specialty Start Date End Date Gopal Villanueva MD [address] [place], [place] [id number] PCP - General FAMILY PRACTICE 06/10/22 documented as of this encounter
--- OUTSIDE RECORDS SUMMARY | 2024-12-10 15:12 | XMS_ITS | Clinical Summary ---
Author Organization [facility] Address [address] [place] [address] Phone Care Team Providers Care Freezing Room Worker Name Role Phone Gopal Villanueva MD Primary Care Provider [phone] Allergies Active Allergy Reactions Criticality Noted Date [...] Comments Blood Pressure 112/68 09/09/2016 8:13 AM MDS NURSE Pulse 89 09/09/2016 8:13 AM MDS NURSE Temperature 36.8 C (98.3 F) 12/08/2015 2:25 PM CDT Respiratory Rate - - Oxygen Saturation 99% 09/09/2016 8:13 AM MDS NURSE Inhaled Oxygen Concentration - - Weight 78.9 kg (174 lb) 09/09/2016 8:13 AM MDS NURSE Height 160 cm (5' 3 ) 09/09/2016 8:13 AM MDS NURSE Body Mass Index 30.82 09/09/2016 8:13 AM MDS NURSE Plan of Treatment Health Maintenance Due Date Last Done Comments DTAP/TDAP/TD VACCINES (1 - Tdap) 1997 HEPATITIS B VACCINES (1 of 3 - 19+ 3-dose series) 1997 HPV/Cotest (21-29) 11/17/1999 CERVICAL CANCER SCREENING 2008 HPV/Cotest (30-65) 2008 PAP SMEAR 2008 BREAST CANCER SCREENING 2018 COLORECTAL SCREENING 11/17/2023 Colorectal Cancer Screening 11/17/2023 FIT-DNA Q 3 years 11/17/2023 FIT/FOBT Q 1 year 11/17/2023 Flex Sig/CT Colonography Q 5 years 11/17/2023 INFLUENZA VACCINE (#1) 2024 HPV VACCINES Aged Out No longer eligi ble based on patient's age to complete this topic Insurance [facility] BLUE ACCESS/TRUE BLUE PPO Care Teams Freezing Room Worker Relationship Specialty Start Date End Date Gopal Villanueva MD [address] [place] [address] PCP - General Family Practice 11/21/15
--- OUTSIDE RECORDS SUMMARY | 2024-12-10 15:12 | XMS_ITS | Clinical Summary ---
Author Organization [facility] Address [address] [place] [address] Care Team Providers Care Growth Hacker Name Role Phone Gopal Villanueva MD Primary Care Provider [phone] Source Comments [facility],non-owned Affiliates and Associated Physician Practices is amultiple site organization consisting of ambulatory clinics and hospital sitesin [place], [place], [place] and [place]. This disclosure is being madepursuant to the Care Everywhere program and may not contain all information available regarding this patient. Last updated 18.[facility] Allergies Active Allergy Reactions Criticality Noted Date Comments Penicillins Anaphylaxis,Swelling,Rash High 6 Medications * Be aware that medications may not be up to date on this document. Alwaysverify current medications with the patient. modafinil (PROVIGIL) 200 MG tablet 90 tablet 1 11/10/2016 Active ergocalciferol (DRISDOL) 97341 UNITS capsule Take 50,000 Units by mouth [...] at Not on file Legal Sex Female 5:25 PM GATE GUARD Gender Identity Not on file Sexual Orientation Not on file Last Filed Vital Signs Vital Sign Reading Time Taken Comments Blood Pressure 113/75 11/10/2016 1:42 PM CDT Pulse 78 11/10/2016 1:42 PM CDT Temperature 37.2 C (99 F) 08/17/2016 12:16 PM GATE GUARD Respiratory Rate 18 08/17/2016 12:16 PM GATE GUARD Oxygen Saturation - - Inhaled Oxygen Concentration [...] SCREENING 1978 LIPID TESTING 1978 MAMMOGRAM 1978 HIV SCREENING 1993 HEPATITIS C SCREENING 11/11/1996 DTAP/TDAP/TD VACCINES (1 - Tdap) 1997 HEPATITIS B VACCINE (1 of 3 - 19+ 3-dose series) 1997 COVID-19 VACCINE ( - 2023-2 5 season) 2024 DEPRESSION SCREENING 08/08/2024 INFLUENZA VACCINE (Season Ended) 2025 ZOSTER VACCINE (1 of 2) 2028 HIB [...] age to complete this topic Care Teams Growth Hacker Relationship Specialty Start Date End Date Gopal Villanueva MD [address] [place] [address] PCP - General 09/07/11
--- NOTE | 2024-12-11 10:59 | WPDPFTINT ---
PFT Procedure Performed PFT Procedure Performed Spirometry with Pre/Post Bronchodilator Plethysmography (Lung Vol) Diffusing Cap (DLCO) Flow Vol Loop PFT Interpretation This is a pulmonary function test with pre and post-bronchodilator spirometry, plethysmography and diffusing capacity. The test was performed and results interpreted in accordance with the 2019 and 2005 ATS/ERS Task Force guidelines respectively using the Global Lung Function Initiative-2012 reference equations. Patient demonstrated good effort and cooperation. Reproducibility criteria were met. The quality of the pre bronchodilator spirometry maneuver was Grade A and post bronchodilator spirometry maneuver was Grade A. Findings: Spirometry: The contour the inspiratory and expiratory flow tracing are normal. The pre bronchodilator FVC is 3.27 L, 96% predicted. The pre bronchodilator FEV1 is 2.57 L, 93% predicted. The pre bronchodilator FEV1: FVC ratio is 79%. The post bronchodilator FVC is 3.26 L, representing no change. The post bronchodilator FEV1 is 2.73 L, representing a 6% increase. The post bronchodilator FEV1: FVC ratio is 84%. Plethysmography: The total lung capacity is 4.73 L, 96% predicted. The functional residual capacity is 2.33 L, 86% predicted. The residual volume is 1.46 L, 88% predicted. Diffusing capacity: The diffusing capacity unadjusted for hemoglobin and carboxyhemoglobin is 22.0, 97% predicted. The diffusing capacity adjusted for alveolar volume is 5.16, 110% predicted. Impression: The spirometry is normal without evidence of an obstructive abnormality. There is no significant improvement after inhaling a single dose of albuterol. The lung volumes are normal. The diffusing capacity is normal. There are no prior studies for comparison
== END 2024-12-10 14:35 | disposition home or self-care (01) ==
LOC: ANHPFT 14:36
PROVIDERS: PCP Family Medicine; Visit Provider Physician Assistant
DX: J45.909 Unspecified asthma, uncomplicated (principal); R06.09 Other forms of dyspnea
CPT/HCPCS: 94060; 94726; 94729

== ENCOUNTER 2025-03-19 08:22 | Outpatient (CLI) | payer BC, SELFPAY ==
--- OUTSIDE RECORDS SUMMARY | 2025-03-19 08:35 | XMS_ITS | Patient Health Record ---
Author Organization [facility] ([address]) Address [address] [place] [address] Care Team Providers Care Rug Dry Room Attendant Name Role Phone Kay KAY, Gopal Primary Care Provider Unavaila Rosangela Garcia Unavailable [phone] Melody Davison Unavailable Unavaila Riley Myers Unavailable [phone] Allergies Allergen (clinical drug ingredient) Drug/Non Drug Allergy documented on EMR Reaction Allergy Type Onset Date Status Penicillin rash Drug Allergy Active Results Component Value Reference Range Notes RESPIRATORY ALLERGY PROFILE REGION VIII: [place], [place] Reviewed date:11/28/2024 06:59:12 PM Interpretation:Normal Performing Lab:[place], [facility], [address] [place], [address] BrianneKathy Arita MD Notes/Report: FASTING: NO FASTING:NO NON-FASTING; NON-FASTING DERMATOPHAGOIDES PTERONYSSINUS (D1) IGE <0.10 CLASS 0 DERMATOPHAGOIDES FARINAE (D2) IGE <0.10 CLASS 0 PENICILLIUM NOTATUM (M1) IGE <0.10 CLASS 0 CLADOSPORIUM HERBARUM (M2) IGE <0.10 CLASS 0 ASPERGILLUS FUMIGATUS (M3) IGE <0.10 CLASS 0 ALTERNARIA ALTERNATA (M6) IGE <0.10 CLASS 0 COCKROACH (I6) IGE <0.10 CLASS 0 MAPLE (BOX ELDER) (T1) IGE <0.10 CLASS 0 MOUNTAIN CEDAR (T6) IGE <0.10 CLASS 0 WALNUT TREE (T10) IGE <0.10 CLASS 0 [place] (T11) IGE <0.10 CLASS 0 COTTONWOOD (T14) IGE <0.10 CLASS 0 WHITE HOANG (T15) IGE <0.10 CLASS 0 OAK (T7) IGE <0.10 CLASS 0 ELM (T8) IGE <0.10 CLASS 0 HICKORY/PECAN TREE (T22) IGE <0.10 CLASS 0 WHITE MULBERRY (T70) IGE <0.10 CLASS 0 BERMUDA GRASS (G2) IGE <0.10 CLASS 0 PAGE GRASS (G6) IGE <0.10 CLASS 0 COMMON RAGWEED (SHORT) (W1) IGE <0.10 CLASS 0 ROUGH PIGWEED (W14) IGE <0.10 CLASS 0 WALLISIAN THISTLE (W11) IGE <0.10 CLASS 0 ROUGH NANCE ELDER (W16) IGE <0.10 CLASS 0 MOUSE URINE PROTEINS (E72) IGE <0.10 CLASS 0 IMMUNOGLOBULIN E 3 <IK=956 kU/L CAT DANDER (E1) IGE <0.10 CLASS 0 DOG DANDER (E5) IGE <0.10 CLASS 0 IMMUNOGLOBULINS A/E/G/M,SERU M Reviewed date:11/27/2024 07:56:20 PM Interpretation:Normal Performing Lab:[facility], [address] [place], [address] Matthew Arita MD Notes/Report: FASTING: NO FASTING:NO NON-FASTING; NON-FASTING IMMUNOGLOBULIN A 193 47-310 mg/dL IMMUNOGLOBULIN E 3 <PB=517 kU/L IMMUNOGLOBULIN G 0630 799-9591 mg/dL IMMUNOGLOBULIN M 115 50-300 mg/dL INTERPRETATION Reviewed date:11/28/2024 06:59:21 PM Interpretation:Interpretation Performing Lab:[facility], [address] [place], [address] Matthew Arita MD Notes/Report: NON-FASTING; NON-FASTING FASTING:NO FASTING: NO INTERPRETATION Specific Level of Allergen IGE Class kU/L Specific IGE Antibody ----- --------- 0 <0.10 Absent/Undetectable 0/1 0.10-0.34 Very Low Level 1 0.35-0.69 Low Level 2 0.70-3.49 Moderate Level 3 3.50-17.4 High Level 4 17.5-49.9 Very High Level 5 50-100 Very High Level 6 >100 Very High Level The clinical relevance of allergen results of 0.10-0.34 kU/L are undetermined and intended for specialist use. Allergens denoted with a include results using one or more analyte specific reagents. In those performance characteristics have been determined by cases, the test was developed and its analytical [employer]. It has not been cleared or approved by the U.S. Food and Drug Administration. This assay has been validated pursuant to the CLIA regulations and is used for clinical purposes. STREPTOCOCCUS PNEUMONIAE AB (IGG) (23 SEROTYPES) Reviewed date:11/27/2024 07:55:46 PM Interpretation:Abnormal Performing Lab:[facility], [facility],, [address] [place], [address] Annita Rivero MD,PhD,FRANTZ Notes/Report: FASTING: NO FASTING:NO NON-FASTING; NON-FASTING SEROTYPE 1 (1) 1.7 SEROTYPE 2 (2) 0.5 SEROTYPE 3 (3) <0.3 SEROTYPE 4 (4) <0.3 SEROTYPE 5 (5) <0.3 SEROTYPE 8 (8) <0.3 SEROTYPE 9 (9N) 1.2 SEROTYPE 12 (12F) <0.3 SEROTYPE 14 (14) 0.3 SEROTYPE 17 (17F) 1.2 SEROTYPE 19 (19F) 4.1 SEROTYPE 20 (20) 2.9 SEROTYPE 22 (22F) <0.3 SEROTYPE 23 (23F) 2.3 SEROTYPE 26 (6B) <0.3 SEROTYPE 34 (10A) 1.5 SEROTYPE 43 (11A) 2.0 SEROTYPE 51 (7F) <0.3 SEROTYPE 54 (15B) 5.3 SEROTYPE 56 (18C) <0.3 SEROTYPE 57 (19A) 9.8 SEROTYPE 68 (9V) 0.9 SEROTYPE 70 (33F) 1.1 Serologic correlates of protection against pneumococcal disease have not been rigorously established for all patient populations. Published data and expert consensus (including WHO) suggest protection from invasive disease usually occurs at levels >or =0.3-0.50 mcg/mL for healthy children receiving pneumococcal conjugate vaccines. Higher titers may be necessary to protect from non-invasive infection (e.g., pneumonia, otitis, sinusitis). Expert opinion suggests that a cut-off of >= 1.3 mcg/mL may be a more relevant value to assess antibody responses after pneumococcal polysaccharide vaccines or for immunocompromised patients. In addition to antibody quantity, protection also depends on antibody avidity and opsonophagocytic activity. Some experts consider that post-vaccination (4-6 weeks) IgG seroconversion and/or 2- to 4-fold rise in IgG titers for >50% to 70% of vaccine serotypes demonstrates a normal post-vaccine serologic response. Persons with high initial serotype-specific titers may have less robust responses. [employer] uses a multi-analyte immunodetection (MAID) method. The method employs the [employer] flow cytometric system which measures multiple analytes simultaneously. The FDA standard reference serum 89-S is used as the calibration standard. Results are reported in mcg/mL. This assay detects all of the 23 of the serotypes in the 23-valent polysaccharide vaccine and 12 of the 13 serotypes in the 13-valent conjugate vaccine. This test was developed and its analytical performance characteristics have been determined by [employer]. It has not been cleared or approved by FDA. This assay has been validated pursuant to the CLIA regulations and used for clinical purposes. For additional information, please refer to http://education.[employer].c om/faq/IBU640 (This link is being provided for informational/ educational purposes only.) H. INFLUENZAE TYPE B AB Reviewed date:11/27/2024 07:55:12 PM Interpretation:Abnormal Performing Lab:[facility],, [address] [place], [address] Annita Rivero MD,PhD,FRANTZ Notes/Report: NON-FASTING; NON-FASTING FASTING:NO FASTING: NO HAEMOPHILUS INFLUENZA TYPE B ANTIBODY (IGG) <0.15 REFERENCE RANGE: > or = 1.00 mcg/mL INTERPRETIVE CRITERIA: <0.15 mcg/mL Nonprotective Antibody Level 0.15 - 0.99 mcg/mL Indeterminate for protective antibody > or = 1.00 mcg/mL Protective Antibody Level IgG antibody to polyribosylribitol phosphate (PRP), the capsular polysaccharide of Haemophilus influenzae type b, is measured in micrograms/mL (mcg/mL), based on correlations with a reference Sohan radioimmunoprecipitation assay (BRADEN). The exact level of antibody needed for protection from infection has not been clarified; values ranging from 0.15 mcg/mL to 1.00 mcg/mL have been reported. A four-fold increase in the PRP IgG antibody level between pre-vaccination and post-vaccination sera is considered evidence of effective immunization. DIPHTHERIA AND TETANUS ANTIT OXOIDS Reviewed date:11/27/2024 07:55:57 PM Interpretation:Normal Performing Lab:[facility], [facility],, [address] [place], [address] Annita Rivero MD,PhD,FRANTZ Notes/Report: NON-FASTING; NON-FASTING FASTING:NO FASTING: NO DIPHTHERIA ANTITOXOID 0.21 REFERENCE RANGE: 0.10 IU/mL or greater Interpretive Criteria <0.10 IU/mL Nonprotective Antibody Level > Or = 0.10 IU/mL Protective Antibody Level Antibody levels > or = 0.10 IU/mL are considered protective. After a primary series of three properly spaced diphtheria toxoid doses in adults or four doses in infants, a protective level of antitoxin (defined as > or = 0.10 IU of antitoxin/mL) is reached in more than 95% of immunized persons. This test was developed and its analytical performance characteristics have been determined by [employer]. It has not been cleared or approved by FDA. This assay has been validated pursuant to the CLIA regulations and is used for clinical purposes. TETANUS ANTITOXOID 1.62 REFERENCE RANGE: 0.10 IU/mL or greater Antibody levels > or = 0.10 IU/mL are considered protective. However, tetanus can still occur in some individuals with such antibody levels. These results should not be used to determine the necessity to administer antitoxin when clinically indicated. This test was developed and its analytical performance characteristics have been determined by [employer]. It has not been cleared or approved by FDA. This assay has been validated pursuant to the CLIA regulations and is used for clinical purposes. Reason For Referral No Information Medications Medication SIG (Take, Route, Frequency, Duration) Notes Start Date End Date Status Claritin 10 MG 1 tablet Orally Once a day Active Vitamin D3 125 MCG (5000 UT) 1 capsule Orally Once a day Active Cyclobenzaprine HCl 5 MG 1 tablet at bed time as needed Orally Once a day Not-Taking Advair HFA 230-21 MCG/ACT 2 puffs Inhala tion Twice a day Active Xhance 93 MCG/ACT 2 sprays (1 spray in each nostril) Nasally Twice a day; Duration: 30 day(s) Active Albuterol Sulfate (2.5 MG/3ML) 0.083% 3 mL as needed Inhalation every 6 hrs Active Airsupra 90-80 MCG/ACT 2 puffs as needed Inhalation Six times a day Active Sunosi 150 MG 1 tablet in the morning Orally Once a day Active Immunizations Vaccine Route Administration Date Status Comme nts Pedvax Hib IM Intramuscular 02/21/2025 Administered NOC Prevnar 20 IM Intramuscular 02/21/2025 Administered Social History Tobacco Use: Social History Observation Description Date Details (start date - stop date) Never Smoker NA - NA Sex Assigned At : Social History Observation Description Sex Assigned At Female Tobacco Control (Standard) Question Answer Notes Tobacco use: Nonsmoker AUDIT-C (Standard) Question Answer Notes Did you have a drink contain ing alcohol in the past year? Yes How often did you have a dri nk containing alcohol in the past year? Monthly or less (1 point) How many drinks did you have on a typical day when you were drinking in the past year? 1 or 2 drinks (0 point) How often did you have six o r more drinks on one occasion in the past year? Never (0 point) Points 1 Interpretation Negative Problems Problem Type SNOMED Code ICD Code Onset Dates Problem Status W/U Status Risk Notes Problem Chronic rhinitis (59053966) Chronic rhinitis (J31.0) Active confirmed Problem Chronic sinusitis (40827059) Other chronic sinusitis (J32.8) Active confirmed Problem Chronic sinusitis, unspecified (J32.9) Active confirmed Vital Signs Respiratory Rate 17 /min 01/01/2025 Oximetry 100 % 01/01/2025 Blood pressure diastolic 83 mm Hg 01/01/2025 Height 63 in 01/01/2025 Blood pressure systolic 129 mm Hg 01/01/2025 Weight 209.8 lbs 01/01/2025 BMI 37.16 kg/m2 01/01/2025 Encounters Encounter Location Date Provider Diagnosis [facility] [address] [place] [address] 11/19/2024 Rosangela Lora Chronic sinusitis, unspecified J32.9 ; Personal history of pneumonia (recurrent) Z87.01 ; Hypertrophy of nasal turbinates J34.3 ; Chronic rhinitis J31.0 ; Shortness of breath R06.02 and Elevated blood-pressure reading, without diagnosis of hypertension R03.[address] [address] 01/01/2025 Rosangela Lora Chronic sinusitis, unspecified J32.9 ; Personal history of pneumonia (recurrent) Z87.01 ; Hypertrophy of nasal turbinates J34.3 ; Chronic rhinitis J31.0 ; Shortness of breath R06.02 and Elevated blood-pressure reading, without diagnosis of hypertension R03.0 [facility] [address] [place] [address] 02/21/2025 Riley Henriquez Encounter for immunization Z23 ; Encounter for antibody response examination Z01.84 and Other chronic sinusitis J32.[address] [address] 11/28/2024 Rosangela Lora Assessments Encounter Date Diagnosis (ICD Code) Assessment Notes Treatment Notes Treatment Clinical Notes Section Notes 11/19/2024 Chronic sinusitis, unspecified (ICD-10 - J32.9) Shirley presents with frequent sinus infections, as well as pneumonia at least twice in the last decade, meeting JMF criteria for modified PIDD work-up. - Will plan on boosters/Vitamin D supplementation based on results. - Also discussed trial of XHANCE, samples given in-office 11/19/2024 Personal history of pneumonia (recurrent) (ICD-10 - Z87.01) See plan above 01/01/2025 Chronic sinusitis, unspecified (ICD-10 - J32.9) Shirley presents with frequent sinus infections, as well as pneumonia at least twice in the last decade, meeting JMF criteria for modified PIDD work-up. - Modified PIDD work-up obtained showing inadequate protection to S. Pneumo (03/30) and H. Influenzae. Due to this recommend Pneumovax and HiB booster. Shirley si to return in two weeks for boosters today as she reports URI. Plan to repeat titers in 4-6 weeks. - Shirley presents with symptoms concerning for a URI today. Symptoms started three days ago. Discussed that we do not typically recommend antibiotics for sinusitis until symptoms have persisted for 7-10 days. Shirley stated my symptoms typically get worse, not better. I have concerns that she has been over treated for sinusitis, though per HPI prior scans showed chronic sinusitis. - Highly recommend starting XHANCE, which Shirley did not do after our last visit. She was given samples, instructed her to start now. - Return in 1-2 weeks to receive boosters as above, lab orders for repeat titers sent to [facility] 01/01/2025 Personal history of pneumonia (recurrent) (ICD-10 - Z87.01) See plan above 02/21/2025 Encounter for immunization (ICD-10 - Z23) 02/21/2025 Encounter for antibody response examination (ICD-10 - Z01.84) 02/21/2025 Other chronic sinusitis (ICD-10 - J32.8) 01/01/2025 Hypertrophy of nasal turbinates (ICD-10 - J34.3) Shirley endorses upper airway symptoms concerning for uncontrolled atopic disease. She has undergone testing in the past without positive results. - Shirley last took Claritin 4 days ago, due to this placed histamine control that did not show significant wheal or flare. - ImmunoCaps returned negative, total IgE 3. Low suspicion for atopic disease, though consider returning for skin testing to full aeroallergen panel if infections persist 11/19/2024 Hypertrophy of nasal turbinates (ICD-10 - J34.3) Shirley endorses upper airway symptoms concerning for uncontrolled atopic disease. She has undergone testing in the past without positive results. - Shirley last took Claritin 4 days ago, due to this placed histamine control that did not show significant wheal or flare. - Will obtain ImmunoCaps. Consider further skin testing pending laboratory review 11/19/2024 Chronic rhinitis (ICD-10 - J31.0) See plan above 01/01/2025 Chronic rhinitis (ICD-10 - J31.0) See plan above 11/19/2024 Shortness of breath (ICD-10 - R06.02) Shirley endorses occasional cough, shortness of breath and chest pain that primarily occurs with illnesses. She is established with pulmonary at [facility], followed by NASIM Davison. She was recently started on Advair BID. No history of hospitalizations due to lower airway symptoms. - Spirometry deferred today at Shirley is slated for full PFT in two weeks. - Continue Advair BID per pulmonary. - Investigate atopic disease, see plan above 01/01/2025 Shortness of breath (ICD-10 - R06.02) Shirley endorses occasional cough, shortness of breath and chest pain that primarily occurs with illnesses. She is established with pulmonary at [facility], followed by NASIM Davison. She was recently started on Advair BID. No history of hospitalizations due to lower airway symptoms. - Spirometry deferred as Shirley completed recent PFT, records request. - Shirley returns today off inhalers. Recommend restarting BID as ordered per pulmonary. - Investigate atopic disease, see plan above 01/01/2025 Elevated blood-pressure reading, without diagnosis of hypertension (ICD-10 - R03.0) BP elevated today without symptoms of urgency or emergency. Continue serial checks and follow-up with PCP 11/19/2024 Elevated blood-pressure reading, without diagnosis of hypertension (ICD-10 - R03.0) BP elevated today without symptoms of urgency or emergency. Continue serial checks and follow-up with PCP 11/19/2024 Other 01/01/2025 Other Plan Of Treatment Pending Test Test Name Order Date STREPTOCOCCUS PNEUMONIAE IGG AB (23 SERO TYPES) 01/01/2025 HAEMOPHILUS INFLUENZAE B ANTIBODY, IGG 0 01/01/2025 Insurance Providers Payer Name Payer Address Payer Phone Subscriber Number Group Number Insured Name Patient Relationship to Insured Coverage Start Date Coverage End Date [facility] [address] [place] [address] [id number] Shirley Amanda Self - patient is the insured Medical (General) History Medical History History ICD Code Narcolepsy Surgical History Surgery Date(Month/Year) Sinus surgery 2014 ankle repair 2016
--- OUTSIDE RECORDS SUMMARY | 2025-03-19 08:35 | XMS_ITS | Clinical Summary ---
Author Organization [facility] Address [address] [place] [address] Care Team Providers Care Art Critic Name Role Phone Gopal Villanueva MD Primary Care Provider [phone] Source Comments [facility],non-owned Affiliates and Associated Physician Practices is amultiple site organization consisting of ambulatory clinics and hospital sitesin [place], [place], [place] and [place]. This disclosure is being madepursuant to the Care Everywhere program and may not contain all information available regarding this patient. Last updated 18.[facility] Allergies Active Allergy Reactions Criticality Noted Date Comments Penicillins Anaphylaxis,Swelling,Rash High 6 Medications * Be aware that medications may not be up to date on this document. Alwaysverify current medications with the patient. modafinil (PROVIGIL) 200 MG tablet 90 tablet 1 11/10/2016 Active ergocalciferol (DRISDOL) 63160 UNITS capsule Take 50,000 Units by mouth [...] on file Legal Sex Female 5:25 PM [employer] CONSULTANT Gender Identity Not on file Sexual Orientation Not on file Last Filed Vital Signs Vital Sign Reading Time Taken Comments Blood Pressure 113/75 11/10/2016 1:42 PM CDT Pulse 78 11/10/2016 1:42 PM CDT Temperature 37.2 C (99 F) 08/17/2016 12:16 PM [employer] H[employer] CONSULTANT Respiratory Rate 18 08/17/2016 12:16 PM [employer] CONSULTANT Oxygen Saturation - - Inhaled Oxygen Concentration - - Weight 80.3 kg (177 lb) 11/10/2016 1:42 PM CDT Height 160 cm (5' 3) 11/10/2016 1:42 PM CDT Body Mass Index [...] season) 2024 DEPRESSION SCREENING 08/08/2024 INFLUENZA VACCINE (#1) 2025 ZOSTER VACCINE (1 of 2) 2028 [...] age to complete this topic Care Teams Art Critic Relationship Specialty Start Date End Date Gopal Villanueva MD [address] [place] [address] PCP - General 09/07/11
--- OUTSIDE RECORDS SUMMARY | 2025-03-19 08:35 | XMS_ITS | Clinical Summary ---
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 Pulse 89 09/09/2016 8:13 AM FORK TRUCK DRIVER Temperature 36.8 C (98.3 F) 12/08/2015 2:25 PM CDT Respiratory Rate - - Oxygen Saturation 99% 09/09/2016 8:13 AM FORK TRUCK DRIVER Inhaled Oxygen Concentration - - Weight 78.9 kg (174 lb) 09/09/2016 8:13 AM FORK TRUCK DRIVER Height 160 cm (5' 3) 09/09/2016 8:13 AM FORK TRUCK DRIVER Body Mass Index 30.82 09/09/2016 8:13 AM FORK TRUCK DRIVER Plan of Treatment Health Maintenance Due Date [...] Q 5 years 11/17/2023 INFLUENZA VACCINE (#1) 2025 HPV VACCINES Aged Out No longer eligi ble based on patient's age to complete this topic Insurance [facility] BLUE ACCESS/TRUE BLUE PPO Care Teams Desktop Architect Relationship Specialty Start Date End Date Gopal Villanueva MD [address] [place] [address] PCP - General Family Practice 11/21/15
--- OUTSIDE RECORDS SUMMARY | 2025-03-19 08:36 | XMS_ITS ---
Author Organization [facility] ([address]) Address [address] [place] [address] Care Team Providers Care Dietetics Director Name Role Phone Kay KAY, Gopal Primary Care Provider UnavailRosangela Blount Unavailable [phone] Melody Rincon Unavailable UnavailRiley Bolden [phone] REASON FOR VISIT HiB Vaccination Medications Medication SIG (Take, Route, Frequency, Duration) Notes Start Date End Date Status Albuterol Sulfate (2.5 MG/3ML) 0.083% 3 mL as needed Inhalation every 6 hrs Active Sunosi 150 MG 1 tablet in the morning Orally Once a day Active Cyclobenzaprine HCl 5 MG 1 tablet at bed time as needed Orally Once a day Not-Taking Airsupra 90-80 MCG/ACT 2 puffs as needed Inhalation Six times a day Active Xhance 93 MCG/ACT 2 sprays (1 spray in each nostril) Nasally Twice a day; Duration: 30 day(s) Active Vitamin D3 125 MCG (5000 UT) 1 capsule Orally Once a day Active Claritin 10 MG 1 tablet Orally Once a day Active Advair HFA 230-21 MCG/ACT 2 puffs Inhala tion Twice a day Active Social History Sex Assigned At : Social History Observation Description Sex Assigned At Female Encounters Encounter Location Date Provider Diagnosis [facility] [address] [place] [address] 02/07/2025 Riley Henriquez Plan Of Treatment No Information Progress Notes * Shirley PARMARDOB:1980 (44 yo F)Acc No.[id number]:02/07/2025 HiB vaccine Patient: Shirley BUSTAMANTE Provider: Saúl Henriquez MD :1980 A ge:44 Y S ex:Female Date:02/07/2025 Address:[address] [place] [address], [id number] Pcp:Gopal Villanueva MD Subjective: * Chief Complaints: * 1 . HiB Vaccination. * Medical History: * Medications: T aking Xhance 93 MCG/ACT Exhaler Suspension 2 sprays (1 spray in each nostril) Nasally Twice a day , Taking Airsupra 90-80 MCG/ACT Aerosol 2 puffs as needed Inhalation Six times a day , Taking Sunosi 150 MG Tablet 1 tablet in the morning Orally Once a day , Taking Albuterol Sulfate (2.5 MG/3ML) 0.083% Nebulization Solution 3 mL as needed Inhalation every 6 hrs , Taking Advair HFA 230-21 MCG/ACT Aerosol 2 puffs Inhalation Twice a day , Taking Claritin 10 MG Tablet 1 tablet Orally Once a day , Taking Vitamin D3 125 MCG (5000 UT) Capsule 1 capsule Orally Once a day , Not- Taking/PRN Cyclobenzaprine HCl 5 MG Tablet 1 tablet at bedtime as needed Orally Once a day Objective: * Vitals: Assessment: Plan: * Treatment: * Billing Information: * Visit Code: * Procedure Codes: * Electronic signature of Jessie Henriquez MD, FAAAAI on 03/19/2025 at 08:35 AM CDT Sign off status: Pending * Provider: Saúl Henriquez MD Date: 02/07/2025 Generated for Geena zarco/Nida/Nino on: 03/19/2025 08:35 AM CDT
--- NOTE | 2025-04-09 11:36 | P.SLEEP_ITS ---
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 She was initially diagnosed at [facility] after an episode of severe pneumonia with mouth old sirs. She does not have a history of obstructive sleep apnea. No one else in the family has narcolepsy. She reports being chronically tired no matter how much she sleeps. She never awakens feeling rested. She has brain fog and poor short-term memory. This seemed to start in college or that is when she 1st remembers it. She can fall asleep anywhere doing any activity. She has taken stimulants including modafinil in [place] no see with little improvement. She does not awaken from sleep feeling short of breath. she does not awaken at night with heartburn, belching or coughing. She rarely snores and it is rarely loud enough that others complain. She does not have difficulty sleeping when she has a cold. She does not gasp for breath at night. She rarely sweats excessively at night. She does not notice her heart pounding or beating irregularly at night. She always falls asleep during the day, frequently falls asleep involuntarily and rarely falls asleep while driving. She does not have loss of muscle tone with strong emotion. She frequently has daytime difficulties due to excessive sleepiness. She does not feel paralyzed on waking or falling asleep. She rarely has vivid dreamlike scenes on waking or falling asleep. She never feels afraid to go to sleep. She rarely has nightmares. She does not have much dream recall. She frequently has racing thoughts. She rarely feels sad or depressed. She occasionally has anxiety. She occasionally notices parts of her body jerking. She rarely kicks at night. She does not have crawling or aching feelings in her legs. She has no leg pain at night. She frequently has morning jaw pain but never grinds her teeth. She rarely is bothered by pain during the day. She does not awaken at night due to pain. She rarely wakes up feeling stiff in the morning, rarely awakens with sore achy muscles or pain in her neck and spine. She has memory problems, concentration difficulties, insomnia and fatigue. Normal bedtime is 10:00 p.m. falling asleep sometimes quickly but she is not sure. She is not sure if she awakens during the night. If she awakens during the night she tries to return to sleep. She wakes at 6:00 a.m.. She estimates getting between 7 and 8 hours of sleep at night. She keeps the same schedule on weekends. She does not generally take naps during the afternoon or evening. A short nap lasting 10-15 minutes is not refreshing. She is usually drowsy for 3 hours after waking. She reports no change in her weight over the last year. Habits: Tobacco : quit 8 years ago Caffeine : 3 servings per day Alcohol : one every 2 weeks Recreational substances : none PMFSH Past Medical History Medical History (Updated 04/16/25 @ 10:58 by Farheen Randhawa MD) Narcolepsy without cataplexy Cough Tendonitis of elbow, right Acute sinusitis BMI 32.0-32.9,adult 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 Leg fracture Pharyngitis H/O fracture of leg COVID-19 Screening for thyroid disorder Screening for diabetes mellitus Chronic sinus complaints Accidental bee sting Family History Family History Grandparent Malignant neoplasm of prostate Family history of malignant neoplasm of testis Father Leukemia Mother Tachycardia Sibling Crohn's disease Uterine cancer Epilepsy Other Diabetes mellitus Hypertension Social History Social History Smoking status: Former smoker Tobacco type: cigarettes Second hand tobacco smoke exposure: Yes Alcohol intake: former Substance use: never Substance use type: does not use Do You Feel Safe in your Home?: Yes Lack of Transportation: No Lack of Food: Never True Current Housing: I Have Housing Concerned About Future Housing: No Difficulty Paying Gas/Electric Bills: No Difficulty Paying for Meds: No Currently Unemployed: No Education: Master's Degree or Higher Difficulty w/ Childcare or Family Care: No Living arrangements: with family Occupation/Education: occupation Additional occupation/education comments: market research Gender identity (if verbalized by the patient): Female Medications Home Medications ?Medication ?Instructions ?Recorded ?Confirmed ?Type cholecalciferol (vitamin D3) 125 125 mcg PO DAILY #30 caps 06/20/24 04/03/25 Rx mcg (5,000 unit) capsule solriamfetol 150 mg tablet (Sunosi) 150 mg PO DAILY #3 0 tabs 09/10/24 04/03/25 Rx albuterol sulfate 90 mcg/actuation 2 puff inhalation Q ID PRN 09/12/24 04/03/25 Rx aerosol inhaler shortness of breath or wheez ing #6.7 grams inhalational spacing device #1 ea 09/12/24 04/03/25 Rx (Aerochamber MV spacer) albuterol sulfate 2.5 mg/3 mL 2.5 mg (3 mL) inhalation Q4-6H PRN 10/10/24 04/03/25 Rx (0.083 %) solution for nebulization shortness of breat h or wheezing #75 mL albuterol 90 mcg-budesonide 80 2 inh inhalation 6XD OR N shortness 11/01/24 04/03/25 Rx mcg/actuation HFA aerosol inhaler of breath #32.1 gram s (Airsupra) budesonide 1 mg/2 mL suspension 1 mg (2 mL) inhalation QAM #60 mL 11/01/24 04/03/25 Rx for nebulization Held on 11/09/24. Instructions: Hold while using Advair albuterol sulfate 2.5 mg/3 mL 2.5 mg (3 mL) inhalation Q4-6H PRN 11/09/24 04/03/25 Rx (0.083 %) solution for nebulization shortness of breat h or wheezing #180 mL fluticasone propionate 230 2 puff inhalation BID #12 g susanna 11/09/24 04/03/25 Rx mcg-salmeterol 21 mcg/actuation HFA inhaler (Advair HFA) fluticasone propionate 93 1 spray intranasal Q12H #16 mL 01/03/25 04/03/25 Rx mcg/actuation breath activated aerosol (Xhance) sodium oxybate 4.5 gram 4.5 g PO ONCE narcolepsy wit hout 04/03/25 04/03/25 Rx granules,extended release in cataplexy 1 month #30 ea packet ([facility]) Sleep Procedure A full night polysomnogram using the [employer] multi-channel system recorded the standard physiologic parameters including EEG, EOG, submentalis EMG, anterior tibialis EMG, EKG, body position, nasal and oral airflow using nasal pressure sensor and thermistor. Respiratory parameters of chest and abdominal movements were recorded with Respiratory Inductance Plethysmography belts. Oxygen saturation was recorded by pulse oximetry. Video monitoring was also performed. Sleep stages, periodic limb movements, and EEG arousals were scored in 30 second epochs according to the criteria of the AASM Scoring Manual. The Apnea-Hypopnea Index was calculated using CMS guidelines for definition of hypopnea with 4% O2 desaturations while scoring respiratory events. The pa tient is not take a sleep aid at the beginning of the study. Sleep Architecture The total recording time was 471.0 minutes. The total sleep time was 452.5 minutes. Sleep latency was 1.8 minutes. REM latency was 73.5 minutes. Sleep efficiency was 96.1%. The patient had 21 awakenings for an awakening index of 2.8. Wake after sleep onset time was 16.5 minutes. The patient spent 17.5 minutes, 3.9% of total sleep time in Stage N1. The patient spent 253.5 minutes, 56.0% in Stage N2. The patient spent 74.0 minutes, 16.4% in Stage N3. The patient spent 107.5 minutes, 23.8% in Stage REM sleep. Respiratory Analysis The patient had 16 hypopneas, no obstructive apneas, no mixed apneas, and no central apneas for an overall Apnea Hypopnea Index of 2.1. The REM Apnea Hypopnea Index was 11.7. The NREM Apnea Hypopnea Index was 0.9. The patient had a Central Apnea Hypopnea Index of 0. There were no Respiratory Effort Related Arousals. The Respiratory Disturbance Index is 4.0 events per hour. There was no evidence of [place] Respirations. Arousals There were 66 total arousals for an arousal index of 8.8. There were 45 spontaneous arousals for an index of 6.0. There were 1 arousal due to resp iratory events for an index of 0.1. There was 1 arousal due to periodic limb movements for an index of 0.1. There were 12 arousals due to isolated limb movements for an index of 1.6. Periodic Limb Movements The patient had 38 isolated limb movements with an index of 5.0. The patient had 15 periodic limb movements with an index of 2.0. Patient had a total of 53 limb movements with a total limb movement index of 7.0. Oximetry Data The patient had an average oxygen saturation of 93.2% in sleep with a minimum oxygen saturation of 86% and a maximum oxygen saturation of 98%. The patient had 16 oxygen desaturations that were 4% or greater resulting in an Oxygen Desaturation Index of 2.1. The patient spent 0.6 minutes, 0.1% of total sleep time with an oxygen saturation below 88%. Snoring Profile Snoring was moderate. Cardiac Profile The EKG showed normal sinus rhythm, Average pulse 80 beats per minute, minimum pulse 62 beats per minute, maximum pulse 107 beats per minute during sleep. There was no arrhythmia.. EEG Profile Unremarkable, no evidence of seizures. Assessment and Plan Assessment and Plan (1) Narcolepsy without cataplexy: Code(s): G47.419 - Narcolepsy without cataplexy Status: Acute Assessment and Plan: This nocturnal polysomnogram on 03/19/2025 shows no significant sleep disordered breathing, apnea-hypopnea index is 2.1 with desaturation 86% and moderate snoring. Her sleep latency was short, under 2 minutes. Her REM latency was normal. She had normal sleep architecture. The patient had over 6 hours of s leep and proceeded to multiple sleep latency test the following day. Please see separate report. Data The data obtained during this sleep study is adequate for interpretation. Certification This sleep study has been reviewed by a board certified sleep medicine physician.
[2025-04-16 10:47] VITALS: BMI 35.4
--- NOTE | 2025-04-16 11:00 | P.SLEEP_ITS ---
Sleep Study Date of Study: 03/19/25 Ordering Provider: Farheen Randhawa MD Interpreting Physician: Farheen Randhawa MD Sleep Study Type: Multiple Sleep Latency Test Height: 1.6 m Weight: 90.718 kg Body Mass Index: 35.4 Neck Circumference (inches): 16 [place]: 16 Reason for Sleep Study History of narcolepsy without cataplexy Sleep History Refer to sleep history from the nocturnal polysomnogram preceeding this study. [facility] Past Medical History Medical History Narcolepsy without cataplexy Cough Tendonitis of elbow, right Acute sinusitis BMI 32.0-32.9,adult 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 Leg fracture Pharyngitis H/O fracture of leg COVID-19 Screening for thyroid disorder Screening for diabetes mellitus Chronic sinus complaints Accidental bee sting Family History Family History Grandparent Malignant neoplasm of prostate Family history of malignant neoplasm of testis Father Leukemia Mother Tachycardia Sibling Crohn's disease Uterine cancer Epilepsy Other Diabetes mellitus Hypertension Social History Social History Smoking status: Former smoker Tobacco type: cigarettes Second hand tobacco smoke exposure: Yes Alcohol intake: former Substance use: never Substance use type: does not use Do You Feel Safe in your Home?: Yes Lack of Transportation: No Lack of Food: Never True Current Housing: I Have Housing Concerned About Future Housing: No Difficulty Paying Gas/Electric Bills: No Difficulty Paying for Meds: No Currently Unemployed: No Education: Master's Degree or Higher Difficulty w/ Childcare or Family Care: No Living arrangements: with family Occupation/Education: occupation Additional occupation/education comments: market research Gender identity (if verbalized by the patient): Female Medications Home Medications ?Medication ?Instructions ?Recorded ?Confirmed ?Type cholecalciferol (vitamin D3) 125 125 mcg PO DAILY #30 caps 06/20/24 04/03/25 Rx mcg (5,000 unit) capsule solriamfetol 150 mg tablet (Sunosi) 150 mg PO DAILY #3 0 tabs 09/10/24 04/03/25 Rx albuterol sulfate 90 mcg/actuation 2 puff inhalation Q ID PRN 09/12/24 04/03/25 Rx aerosol inhaler shortness of breath or wheez ing #6.7 grams inhalational spacing device #1 ea 09/12/24 04/03/25 Rx (Aerochamber MV spacer) albuterol sulfate 2.5 mg/3 mL 2.5 mg (3 mL) inhalation Q4-6H PRN 10/10/24 04/03/25 Rx (0.083 %) solution for nebulization shortness of breat h or wheezing #75 mL albuterol 90 mcg-budesonide 80 2 inh inhalation 6XD MI N shortness 11/01/24 04/03/25 Rx mcg/actuation HFA aerosol inhaler of breath #32.1 gram s (Airsupra) budesonide 1 mg/2 mL suspension 1 mg (2 mL) inhalation QAM #60 mL 11/01/24 04/03/25 Rx for nebulization Held on 11/09/24. Instructions: Hold while using Advair albuterol sulfate 2.5 mg/3 mL 2.5 mg (3 mL) inhalation Q4-6H PRN 11/09/24 04/03/25 Rx (0.083 %) solution for nebulization shortness of breat h or wheezing #180 mL fluticasone propionate 230 2 puff inhalation BID #12 g susanna 11/09/24 04/03/25 Rx mcg-salmeterol 21 mcg/actuation HFA inhaler (Advair HFA) fluticasone propionate 93 1 spray intranasal Q12H #16 mL 01/03/25 04/03/25 Rx mcg/actuation breath activated aerosol (Xhance) sodium oxybate 4.5 gram 4.5 g PO ONCE narcolepsy wit hout 04/03/25 04/03/25 Rx granules,extended release in cataplexy 1 month #30 ea packet ([facility]) Sleep Procedure The recording montage for the MSLT includes central EEG (C3-A2, C4-A1) and occipital (O1-A2, O2-A1) derivations, left and right eye electrooculograms (EOGs), mental/submental electromyogram (EMG), and electrocardiogram (EKG). Nap Summary: Study started at 07:15:01 AM. Nap 1 sleep latency was 2.3 minutes, REM sleep was not present. The patient said that sleep occurred. The patient reported no dreaming. Nap 2 sleep latency was 3.8 minutes, REM sleep was not present. The patient said that sleep occurred. The patient reported no dreaming. Nap 3 sleep latency was 6.8 minutes, REM sleep was not present. The patient said that sleep occurred. The patient reported no dreaming. Nap 4 sleep latency was 4.0 minutes, REM sleep was not present. The patient said that sleep occurred. The patient reported no dreaming. Nap 5 sleep latency was 0.5 minutes, REM sleep was not present. The patient said that sleep occurred. The patient reported dreaming. This was the only nap she thought that she had dreaming. There were 5 nap opportunities with a mean sleep latency of 3.5 minutes. The patient slept on 5 naps and no REM sleep (SOREM) occurred in any of the naps. Sleep Architecture NA Respiratory Analysis NA Arousals NA Periodic Limb Movements Na Oximetry Data NA Snoring Profile NA Cardiac Profile NA EEG Profile NA Assessment and Plan Assessment and Plan (1) Narcolepsy without cataplexy: Code(s): G47.419 - Narcolepsy without cataplexy Status: Acute Assessment and Plan: This multiple sleep latency test on March 20, 2025 shows that she slept on 5/5 naps with a short mean sleep latency of 3.5 minutes, and no sleep-onset REM periods. This does not meet the strict definition of narcolepsy type 2, narcolepsy without cataplexy, as she did not have any sleep onset REM periods. She does not have a better explanation for her clinical findings. With multiple sleep latency testing, there was a 20-30% change in results when patients are retested. This is a poorly reproducible test in patients with narcolepsy type 2. She does not have a history to support alternative diagnoses including chronic insufficient sleep, a circadian rhythm sleep-wake disorder or other current sleep disorder, mental disorder, or medication/substance use or withdrawal. She does not have frequent sleep paralysis or hypnagogic hallucinations. She is frequently tired on waking. She may have idiopathic hypersomnolence, however her history shows that she has not responded to modafinil or Sunosi. 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 Data The data obtained during this sleep study is adequate for interpretation. Certification This sleep study has been reviewed by a board certified sleep medicine physician.
[2025-04-16 11:02] VITALS: BMI 35.4
== END 2025-03-20 15:44 | disposition home or self-care (01) ==
LOC: ANHCSM 08:27
PROVIDERS: PCP Family Medicine; Visit Provider Internal Medicine Critical Care Medicine
DX: G47.419 Narcolepsy without cataplexy (principal)
CPT/HCPCS: 95805; 95810